=== PATIENT | female | born 1975 | race Two or more races ===

== ENCOUNTER 2017-02-21 20:31 | Inpatient (IN) | payer SELFPAY ==
[~2017-02-21] VITALS: Ht 149.9 cm; Wt 68.4 kg
[2017-02-21 21:09] LABS: Basophils # (auto) 0 uL; Basophils % (auto) 0.3 % (0.0-2.0); Eosinophils # (auto) 0.1 uL; Eosinophils % (auto) 0.5 % (0.0-7.0); Hematocrit 37.4 % (36.0-46.0); Hemoglobin 12.3 g/dL (12.2-16.2); Lymphocytes # (auto) 1.5 uL; Lymphocytes % (auto) 12.7 % (10.0-50.0); Mean Corpuscular Hgb Conc. 32.8 g/dL (32.0-36.0); Mean Corpuscular Volume 85.4 fL (80.0-100.0); Mean Platelet Volume 7.7 fL (6.9-10.8); Monocytes # (auto) 0.6 uL; Neutrophils # (auto) 9.9 uL; Neutrophils % (auto) 81.5 % (37.0-80.0); Platelet Count (auto) 316 10^3/uL (140-450); Red Cell Distribution Width 14.1 % (11.8-14.3); White Blood Cell 12.1 10^3/uL (4.4-10.8)
[2017-02-21 21:40] LABS: BUN/Creatinine Ratio 15.3; Bilirubin, Total 0.3 mg/dL (0.2-1.0); Calcium 7.6 mg/dL (8.5-10.1); Potassium 4.1 mmol/L (3.5-5.1); Total Protein 6.8 g/dL (6.4-8.2)
[2017-02-21 21:41] LABS: B-Type Natriuretic Peptide 8.5 pg/mL (0-100)
[2017-02-21 21:45] LABS: Temperature: 21.9 C (20.0-25.0)
[2017-02-22 02:42] LABS: Urine Bilirubin Negative (Negative); Urine Blood Negative /uL (Negative); Urine Color Yellow (Yellow); Urine Glucose Normal (Normal); Urine Hyaline Cast FEW /lpf (0 - 2); Urine Ketone Negative (Negative); Urine Mucus FEW (None Seen); Urine Nitrite Negative (Negative); Urine RBC 1 /hpf (0 - 4); Urine Squamous Epithelial Cell FEW /hpf (<5); Urine Urobilinogen Normal (Negative); Urine pH 5.5 (5.0-8.0)
[2017-02-22] MEDS ORDERED: ASPirin 81 mg TAB PO ONE (05:15)
[2017-02-22] MEDS ORDERED: LACTULOSE 20Gm/30ML SOLN PO PRN (06:30)
[2017-02-22] MEDS ORDERED: NITROGLYCERIN 0.4 MG SL TAB SL PRN (06:30)
[2017-02-22] MEDS ORDERED: ENALAPRIL MALEATE 2.5 MG TAB PO SCH (10:00)
[2017-02-22] MEDS ORDERED: NITROGLYCERIN 0.2MG/HR TOPICAL PATCH TD SCH (10:00)
[2017-02-22] MEDS: ENOXAPARIN SOD 30 MG/0.3 ML SYRINGE SC SCH (10:40)
[2017-02-22] MEDS: METOPROLOL TARTRATE 25 MG TAB PO SCH ×2 (10:41→22:40)
[2017-02-22] MEDS: ASPirin 81 mg TAB PO SCH (10:41)
[2017-02-22] MEDS: MORPHINE SULF INJ 2 MG/ML SYRINGE 1ML IV PRN ×2 (10:43→18:57)
[2017-02-22] MEDS: SODIUM CHLORIDE 0.9% 1,000 ML IV SCH ×3 (10:44→21:35)
[2017-02-22 11:23] VITALS: BP 114/62
[2017-02-22 16:48] VITALS: BP 95/57
[2017-02-22 20:00] VITALS: BP 113/76
[2017-02-22 21:46] VITALS: BP 113/76
[2017-02-22] MEDS: ATORVASTATIN 20 MG TAB PO SCH (22:40)
[2017-02-22] MEDS ORDERED: NITROGLYCERIN 0.4 MG SL TAB SL ONE (23:13)
[2017-02-23] MEDS ORDERED: NITROGLYCERIN 0.4 MG SL TAB SL PRN (04:45)
[2017-02-23 06:12] LABS: Basophils # (auto) 0 uL; Basophils % (auto) 0.4 % (0.0-2.0); Eosinophils # (auto) 0.3 uL; Eosinophils % (auto) 3.1 % (0.0-7.0); Hematocrit 35.5 % (36.0-46.0); Hemoglobin 11.7 g/dL (12.2-16.2); Lymphocytes # (auto) 2.8 uL; Lymphocytes % (auto) 31.2 % (10.0-50.0); Mean Corpuscular Hemoglobin 28.2 pg (28.0-32.0); Mean Corpuscular Hgb Conc. 32.9 g/dL (32.0-36.0); Mean Corpuscular Volume 85.8 fL (80.0-100.0); Mean Platelet Volume 7.7 fL (6.9-10.8); Monocytes # (auto) 0.6 uL; Monocytes % (auto) 6.3 % (0.0-12.0); Neutrophils # (auto) 5.2 uL; Nucleated Red Blood Cells % 0.1 %; Platelet Count (auto) 308 10^3/uL (140-450); Red Cell Distribution Width 14.2 % (11.8-14.3); White Blood Cell 8.9 10^3/uL (4.4-10.8)
[2017-02-23 06:34] LABS: Albumin 2.7 g/dL (3.4-5.0); BUN/Creatinine Ratio 20.8; Bilirubin, Total 0.2 mg/dL (0.2-1.0); Potassium 4.3 mmol/L (3.5-5.1); Total Protein 6.4 g/dL (6.4-8.2)
[2017-02-23 09:00] VITALS: BP 112/62
[2017-02-23] MEDS: ENOXAPARIN SOD 30 MG/0.3 ML SYRINGE SC SCH (09:57)
[2017-02-23] MEDS: METOPROLOL TARTRATE 25 MG TAB PO SCH ×2 (09:58→21:37)
[2017-02-23] MEDS: ASPirin 81 mg TAB PO SCH (09:58)
[2017-02-23] MEDS ORDERED: ACETAMINOPHEN 500 MG TAB PO PRN (12:30)
[2017-02-23 13:00] VITALS: BP 113/71
[2017-02-23 17:00] VITALS: BP 117/73
[2017-02-23] MEDS ORDERED: MORPHINE SULF INJ 2 MG/ML SYRINGE 1ML IV PRN (18:45)
[2017-02-23] MEDS: ATORVASTATIN 20 MG TAB PO SCH (21:36)
[2017-02-23 21:40] VITALS: BP 115/70
[2017-02-24 05:00] VITALS: BP 111/67
[2017-02-24 08:00] VITALS: BP 111/67
[2017-02-24 08:46] VITALS: BP 112/73
[2017-02-24] MEDS: ENOXAPARIN SOD 30 MG/0.3 ML SYRINGE SC SCH (10:44)
[2017-02-24] MEDS: METOPROLOL TARTRATE 25 MG TAB PO SCH (10:44)
[2017-02-24 13:00] VITALS: BP 108/72
[2017-02-24] MEDS ORDERED: DILTIAZEM HCL 120MG ER CAP PO SCH (13:15)
[2017-02-24 17:16] VITALS: BP 109/67
[2017-02-24 17:30] VITALS: BP 109/67
== END 2017-02-24 19:12 | disposition home or self-care (01) | DRG 280 ==
LOC: EDBD 20:39 → ER 20:39 → TELE 20:40 → TELE-E-ADS 02-22 08:47 → TELE-WESTW 02-22 10:48
PROVIDERS: ADMIT Family Medicine; ATTEND Internal Medicine
PROC: 5A2204Z Restoration of Cardiac Rhythm, Single (ICD-10-PCS; principal; 2017-02-24)
DX: I47.1 Supraventricular tachycardia (principal); I21.4 Non-ST elevation (NSTEMI) myocardial infarction; R65.11 Systemic inflammatory response syndrome (SIRS) of non-infectious origin with acute organ dysfunction; E44.0 Moderate protein-calorie malnutrition; K76.89 Other specified diseases of liver; I25.10 Atherosclerotic heart disease of native coronary artery without angina pectoris; N18.2 Chronic kidney disease, stage 2 (mild); Z79.899 Other long term (current) drug therapy; Z82.49 Family history of ischemic heart disease and other diseases of the circulatory system; Z68.30 Body mass index [BMI] 30.0-30.9, adult
CPT/HCPCS: 36415; 71010; 80053; 80061; 80307; 81001; 83735; 83880; 84443; 84484; 84702; 85025; 87086; 93005; 93017; 93306; 94761; 96361; 96372; 96374

== ENCOUNTER 2018-09-08 12:30 | Emergency (ER) | payer MEDICAID, OTHER ==
[~2018-09-08] VITALS: Ht 147.3 cm; Wt 72.6 kg
[2018-09-08 13:58] VITALS: BP 138/85
== END 2018-09-08 14:40 | disposition home or self-care (01) ==
LOC: ER 12:30
DX: L03.211 Cellulitis of face (principal); Z86.73 Personal history of transient ischemic attack (TIA), and cerebral infarction without residual deficits

== ENCOUNTER 2024-04-23 21:57 | Inpatient (IN) | payer MEDICAID, OTHER ==
[~2024-04-23] VITALS: Ht 165.1 cm; Wt 78.2 kg
[2024-04-23] MEDS: dilTIAZem 25 MG/5 ML VIAL IV ONE (22:15)
[2024-04-23] MEDS: PIPERACILLIN-TAZOB 3.375GM 100 ML IV ONE (22:15)
[2024-04-23] MEDS: SODIUM CHLORIDE 0.9% 1,000 ML IV ONE ×2 (22:15)
[2024-04-23 22:32] LABS: Basophils # (auto) 0.1 10 ^3/uL (0-0.2); Eosinophils # (auto) 0 10 ^3/uL (0-0.8); Hemoglobin 10.5 g/dL (12.2-16.2); Lymphocytes # (auto) 0.5 10 ^3/uL (0.4-5.4); Monocytes # (auto) 0.6 10 ^3/uL (0-1.3); Monocytes % (auto) 5.3 % (0.0-12.0); Neutrophils # (auto) 9.9 10 ^3/uL (1.6-8.6); White Blood Cell 11.1 10^3/uL (4.4-10.8)
[2024-04-23 22:34] LABS: Basophils % (auto) 0.6 % (0.0-2.0); Eosinophils % (auto) 0.2 % (0.0-7.0); Hematocrit 34.1 % (36.0-46.0); Lymphocytes % (auto) 4.7 % (10.0-50.0); Mean Corpuscular Hgb Conc. 30.8 g/dL (32.0-36.0); Mean Corpuscular Volume 71.4 fL (80.0-100.0); Neutrophils % (auto) 89.2 % (37.0-80.0); Platelet Count (auto) 324 10^3/uL (140-450); Red Blood Cells 4.77 10^6/uL (4.0-5.20); Red Cell Distribution Width 18.4 % (11.8-14.3)
[2024-04-23 22:45] VITALS: RESP 16; O2SAT 98
[2024-04-23 22:47] LABS: INR 1.08 (0.9-1.15); Partial Thromboplastin Time 21.6 SEC (24.5-34.5); Prothrombin Time 11.4 sec (9.3-11.8)
[2024-04-23 22:52] LABS: Alanine Aminotransferase 32 U/L (7-40); Albumin 3.7 g/dL (3.2-4.8); Anion Gap 9 (5-15); BUN/Creatinine Ratio 7.8 (10.0-20.0); Blood Urea Nitrogen 6 mg/dL (9-23); Carbon Dioxide 24 mmol/L (20-31); Chloride 103 mmol/L (98-107); Glucose 115 mg/dL (74-106); Sodium 136 mmol/L (136-145)
[2024-04-23 22:53] LABS: Alkaline Phosphatase 128 U/L (46-116); Aspartate Aminotransferase 46 U/L (13-40); Bilirubin, Total 0.2 mg/dL (0.2-1.0); Calcium 8.4 mg/dL (8.7-10.4); Magnesium 1.6 mg/dL (1.6-2.6); Total Protein 6.5 g/dL (5.7-8.2)
--- NOTE | 2024-04-23 22:53 | ED.PDOC ---
HPI Comments 49-year-old female who came to ER via EMS for chest pains. Per EMS, patient was picked up at home, noted she has been having flu-like symptoms for the past few days. Patient then altered and confused earlier today so paramedics were called. Patient was noted to be responsive only to deep sternal stimuli. UA revealed AFib at 245 beats per minute. Patient was given Zofran and aspirin and IV bolus fluids which improved heart rate to 130's. Patient slightly less confused at this time, currently complaining of chest pains and nausea. 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 Family History Family History: Pt Confused Social History Smoker: Pt Confused Alcohol: Pt Confused Drugs: Pt Confused Lives In: Home Constitutional: denies: chills, diaphoresis, fatigue, fever, malaise, sweats, weakness, others Respiratory: denies: cough, hemoptysis, orthopnea, SOB at rest, shortness of breath, SOB with excertion, stridor, wheezing, others Cardiovascular: reports: chest pain, palpitations; denies: dizzy spells, diaphoresis, Dyspnea on exertion, edema, irregular heart beat, left arm pain, lightheadedness, PND, syncope, others Gastrointestinal: denies: abdomen distended, abdominal pain, blood streaked bowels, constipated, diarrhea, dysphagia, difficulty swallowing, hematemesis, melena, nausea, poor appetite, poor fluid intake, rectal bleeding, rectal pain, vomiting, others Genitourinary: denies: abnormal vagina bleeding, burning, dyspareunia, dysuria, flank pain, frequency, hematuria, incontinence, pain, , vagina discharge, urgency, others Neurological: denies: dizziness, fainting, headache, left sided numbness, left sided weakness, numbness, paresthesia, pre-existing deficit, right sided numbness, right sided weakness, seizure, speech problems, tingling, tremors, weakness, others Musculoskeletal: denies: back pain, gout, joint pain, joint swelling, muscle pain, muscle stiffness, neck pain, others Integumetry: denies: bruises, change in color, change in hair/nails, dryness, laceration, lesions, lumps, rash, wounds, others Allergic/Immunocompromised: denies: Difficulty Healing, Frequent Infections, Hives, Itching, others Hematologic/Lymphatic: denies: anemia, blood clots, easy bleeding, easy bruising, swollen glands, others Endocrine: denies: excessive hunger, excessive sweating, excessive thirst, excessive urination, flushing, intolerance to cold, intolerance to heat, unexplained weight gain, unexplained weight loss, others Psychiatric: denies: anxiety, bipolar disorder, depression, hopeless, panic disorder, schizophrenia, sleepless, suicidal, others Physical Exam General Appearance: Obese, Severe Distress HEENT: Normal ENT Inspection, Pharynx Normal, TMs Normal Neck: Full Range of Motion, Non-Tender, Normal, Normal Inspection Respiratory: Chest Non-Tender, Lungs Clear, No Accessory Muscle Use, No Respiratory Distress, Normal Breath Sounds Cardiovascular: No Edema, No JVD, No Murmur, No Gallop, Normal Peripheral Pulses, Regular Rate/Rhythm Breast Exam: Deferred Gastrointestinal: No Organomegaly, Non Tender, No Pulsatile Mass, Normal Bowel Sounds, Soft Genitalia: Deferred Pelvic: Deferred Rectal: Deferred Extremities: No calf tenderness, Normal capillary refill, Normal inspection, Normal range of motion, Non-tender, No pedal edema Musculoskeletal : Apperance: Normal Neurologic: Alert, non destructive evaluation technician II-XII nml as Tested, No Motor Deficits, Normal Affect, Normal Mood, No Sensory Deficits Cerebellar Function: Normal Reflexes: Normal Skin: Dry, Normal Color, Warm Lymphatic: No Adenopathy EKG EKG : Pulse Rate (adult): 130 Cardiac Rhythm: ST Hypertrophy: LAE, ELAINE Was a procedure done? Was a procedure done?: No CP Differential Dx Differential Diagnosis: A-fib, Anxiety / Panic Attack, Electrolyte Disorder Differential Diagnosis: Angina, Chest Wall Pain, Costochondritis, Esophageal reflux/spasm, Gastritis, Myocardial Infarction X-Ray, Labs, Meds, VS Vital Signs Date Time Temp Pulse Resp B/P (MAP) Pulse Ox O2 Delivery O2 Flow Rate FiO2 04/23/24 23:18 105 04/23/24 22:53 130 04/23/24 22:02 100.0 135 18 122/85 (97) 97 04/23/24 21:57 130 Lab Test 04/23/24 22:50 04/23/24 22:16 Range/Units Troponin I High Sensitivity 3250 *H 1790 *H </=34 ng/L White Blood Count 11.1 H 4.4-10.8 10^3/uL Red Blood Count 4.77 4.0-5.20 10^6/uL Hemoglobin 10.5 L 12.2-16.2 g/dL Hematocrit 34.1 L 36.0-46.0 % Mean Corpuscular Volume 71.4 L 80.0-100.0 fL Mean Corpuscular Hemoglobin 22.0 L 28.0-32.0 pg Mean Corpuscular Hemoglobin Concent 30.8 L 32.0-36.0 g/dL Red Cell Distribution Width 18.4 H 11.8-14.3 % Platelet Count 324 140-450 10^3/uL Mean Platelet Volume 7.9 6.9-10.8 fL Neutrophils (%) (Auto) 89.2 H 37.0-80.0 % Lymphocytes (%) (Auto) 4.7 L 10.0-50.0 % Monocytes (%) (Auto) 5.3 0.0-12.0 % Eosinophils (%) (Auto) 0.2 0.0-7.0 % Basophils (%) (Auto) 0.6 0.0-2.0 % Neutrophils # (Auto) 9.9 H 1.6-8.6 10 ^3/uL Lymphocytes # (Auto) 0.5 0.4-5.4 10 ^3/uL Monocytes # (Auto) 0.6 0-1.3 10 ^3/uL Eosinophils # (Auto) 0 0-0.8 10 ^3/uL Basophils # (Auto) 0.1 0-0.2 10 ^3/uL Nucleated Red Blood Cells 0.0 % Prothrombin Time 11.4 9.3-11.8 sec Prothrombin Time INR 1.08 0.9-1.15 Activated Partial Thromboplast Time 21.6 L 24.5-34.5 SEC Sodium Level 136 136-145 mmol/L Potassium Level 4.0 3.5-5.1 mmol/L Chloride Level 103 98-107 mmol/L Carbon Dioxide Level 24 20-31 mmol/L Anion Gap 9 5-15 Blood Urea Nitrogen 6 L 9-23 mg/dL Creatinine 0.77 0.550-1.02 mg/dL Glomerular Filtration Rate Calc 96 >90 mL/min BUN/Creatinine Ratio 7.8 L 10.0-20.0 Serum Glucose 115 H 74-106 mg/dL Calcium Level 8.4 L 8.7-10.4 mg/dL Magnesium Level 1.6 1.6-2.6 mg/dL Total Bilirubin 0.2 0.2-1.0 mg/dL Aspartate Amino Transferase (AST) 46 H 13-40 U/L Alanine Aminotransferase (ALT) 32 7-40 U/L Alkaline Phosphatase 128 H 46-116 U/L B-Type Natriuretic Peptide 91.39 0-100 pg/mL Total Protein 6.5 5.7-8.2 g/dL Albumin 3.7 3.2-4.8 g/dL Beta HCG, Quantitative 1.4 L 1.5-4.2 mIU/mL Current Medications Medications (Trade) Dose Ordered Sig/Ingrid Route Start Time Stop Time Status Last Admin Sodium Chloride 1,000 ml @ 1,000 mls/hr Q1H ONCE IV 04/23/24 22:15 04/23/24 23:15 DC 04/23/24 22:15 Sodium Chloride 1,000 ml @ 150 mls/hr Q6H40M ONCE IV 04/23/24 22:15 04/24/24 04:54 04/23/24 22:15 Diltiazem HCl (Cardizem Injection) 20 mg ONCE ONCE IV 04/23/24 22:15 04/23/24 22:20 DC 04/23/24 22:15 Piperacillin Sod/ Tazobactam Sod 100 ml @ 100 mls/hr ONCE ONCE IV 04/23/24 22:15 04/23/24 23:15 DC 04/23/24 22:15 CHEST RADIOGRAPH Indication: CP Technique: Single frontal view of the chest was obtained Comparison: None Findings/ IMPRESSION: Low lung volumes with mild bronchovascular crowding. No active cardiopulmonary disease. First troponin is 17 90. Second troponin is 3250. EKG shows no signs of ischemia of is the patient converted from AFib to sinus tach prior to admission to the ER. She was given diltiazem 10 mg twice. BNP is 91. CBC and CMP are reasonable normal. The patient was placed on a heparin drip and Cardiology was called. The patient will be admitted to the hospitalist for further evaluation and care. Time of 1ST Reevaluation: 22:47 Reevaluation 1ST: Unchanged Patient Education/Counseling: Diagnosis, Treatment Family Education/Counseling: No Family Present Departure 1 Departure Time of Disposition: 23:55 Impression: Primary Impression: Altered level of consciousness Additional Impressions: Metabolic encephalopathy Non-STEMI (non-ST elevated myocardial infarction) Generalized weakness Flu-like symptoms Atrial fibrillation Qualified Codes: I48.91 - Unspecified atrial fibrillation Disposition: ADMITTED INPATIENT Admit to: ICU Condition: Critical e-Prescriptions No Active Prescriptions or Reported Meds Critical Care Note Critical Care Time?: Yes (35 min-critical care time only) Critical care comment: AFib Stability Stability form required: No Heart Score Heart Score: Heart Score Response (Comments) Value History Moderate Suspicious 1 EKG Repolarization Disturb 1 Age 45-64 1 Risk Factors 1 or 2 risk factors 1 Troponin >3 x's Normal limit 2 Total 6 I personally scribed for ALEXSANDER SHIRLEY MD ([email or web address]) on 04/23/24 at 22:53. Electronically submitted by Simone Conroy ([email or web address]). I personally scribed for ALEXSANDER SHIRLEY MD ([email or web address]) on 04/23/24 at 23:53. Electronically submitted by Simone Conroy ([email or web address]). ALEXSANDER SHIRLEY MD Apr 23, 2024 22:53
--- NOTE | 2024-04-23 23:01 | DVH ---
CHEST RADIOGRAPH Indication: CP Technique: Single frontal view of the chest was obtained Comparison: None Findings/ IMPRESSION: Low lung volumes with mild bronchovascular crowding. No active cardiopulmonary disease.
[2024-04-24] VITALS (9 sets, daily range): BP systolic 115–169; BP diastolic 58–91; PULSE 82–105; RESP 16–20; TEMP 98.3–99.6; O2SAT 98–100
[2024-04-24] MEDS ORDERED: NITROGLYCERIN 0.4 MG SL TAB SL PRN (00:45)
[2024-04-24] MEDS ORDERED: HYDROcodone-ACET 5/325MG TAB PO PRN (00:45)
[2024-04-24] MEDS ORDERED: ONDANSETRON HCL 4 MG/2 ML VIAL IV PRN (00:45)
[2024-04-24] MEDS: HEPARIN SODIUM (PORCINE) 5000 UNITS/ML 1ML VIAL IV ONE ×2 (00:45)
[2024-04-24] MEDS ORDERED: MORPHINE SULFATE INJ 2 MG/ml SYRG IV PRN ×2 (00:45)
[2024-04-24] MEDS ORDERED: DOCUSATE SOD 100 MG CAP PO PRN (00:45)
[2024-04-24] MEDS: HEPARIN SODIUM (PORCINE) 5000 UNITS/ML 1ML VIAL SC ONE (00:47)
--- NOTE | 2024-04-24 00:52 | DVHHP2 ---
History of Present Illness Reason for Visit: Non-STEMI (non-ST elevated myocardial infarction) History of Present Illness The patient is a 49-year-old female with past medical history of AFib and CVA w ho presented to [facility] ED with complaint of chest pain. As reported by EMS, patient was picked up at home, noted to flu-like symptoms for the past few days, altered, confused today so EMS were called. When EMS arrived on the scene, patient was responsive only to deep sternal stimuli, AFib at 245 beats per minute. Patient was given IV fluid bolus and aspirin which improved heart rate to 130s EN route to our facility ED. patient was seen and evaluated in the ED, laboratory data shows WBC 11.1, platelets 324, sodium 136, potassium 4.0, BUN 6, creatinine 0.77, glucose 115, AST 46, ALT 32, BNP 91.39, troponin 3250, blood pressure 122/85, heart rate 135 trending down to 105, temperature 100.0 F, O2 saturation 97% on oxygen. Head CT showed no acute intracranial abnormality. Patient was started on heparin drip, please see medication orders section in the computer. On my assessment, patient denied chest pain at this moment, no headache, no dizziness, no diaphoresis, abdominal pain, no diarrhea, no nausea, no vomiting, no fever, no chills. Patient was admitted for further evaluation and medical management. Past Medical History AFIB, CVA Past Surgical History Denies all surgeries Family History Reviewed, noncontributory to the management of this case. Past Social History The patient lives at home, denies smoking, alcohol or illicit drugs abuse. Review of Systems Constitutional: Yes: Weakness; No: Fever, Chills, Sweats, Malaise, Other Eyes: No: Pain, Vision change, Conjunctivae inflammation, Eyelid inflammation, Other, Redness ENT: No: Ear pain, Ear discharge, Nose pain, Nose discharge, Nose congestion, Mouth pain, Mouth swelling, Throat pain, Throat swelling, Other Respiratory: No: Cough, Dry, Shortness of breath, SOB with excertion, Wheezing, Hemoptysis, Pleuritic Pain, Sputum, Wheezing, Other Cardiovascular: Chest Pain, Palpitations; No: Orthopnea, Paroxysmal Noc. Dyspnea, Edema, Lt Headedness, Other Gastrointestinal: No: Nausea, Vomiting, Abdominal Pain, Diarrhea, Constipation, Melena, Hematochezia, Other Genitourinary: No Dysuria, No Frequency, No Incontinence, No Hematuria, No Retention, No Other Musculoskeletal: No: other, neck pain, shoulder pain, arm pain, back pain, hand pain, leg pain, foot pain Skin: No: Rash, Lesions, Jaundice, Bruising, Other Neurological: No: Weakness, Numbness, Incoordination, Change in speech, Confusion, Seizures, Other Allergies: Coded Allergies: NO KNOWN ALLERGIES (Unverified , 02/21/17) Medications Current Medications Medications Dose Ordered Sig/Ingrid Route Start Time Stop Time Status Last Admin Dose Admin Heparin Sodium/ Dextrose 250 ml @ 10 mls/hr Q24H IV 04/24/24 00:00 Exam Vital Signs Vital Signs Date Time Temp Pulse Resp B/P (MAP) Pulse Ox O2 Delivery O2 Flow Rate FiO2 04/23/24 23:18 105 04/23/24 22:02 100.0 18 122/85 (97) 97 General Appearance: Alert, Oriented X3, Cooperative, No acute distress HEENT: Atraumatic, PERRLA, EOMI, Mucous membr. moist/pink Respiratory: Clear to auscultation, Normal air movement Cardiovascular: Regular rate, Normal S1, Normal S2, No murmurs Abdominal: Normal bowel sounds, Soft, No tenderness, No hepatospenomegaly, No masses Extremities: No clubbing, No cyanosis, No edema, Normal pulses, No tenderness/swelling Skin: No rashes, No breakdown, No significant lesion Neuro: Normal speech, Normal tone, Sensation intact, Cranial nerves 3-12 NL, Reflexes 2+ Psych/Mental Status: Mental status NL, Mood NL Labs/Xrays Labs Test 04/23/24 22:50 04/23/24 22:16 Range/Units Troponin I High Sensitivity 3250 *H </=34 ng/L White Blood Count 11.1 H 4.4-10.8 10^3/uL Red Blood Count 4.77 4.0-5.20 10^6/uL Hemoglobin 10.5 L 12.2-16.2 g/dL Hematocrit 34.1 L 36.0-46.0 % Mean Corpuscular Volume 71.4 L 80.0-100.0 fL Mean Corpuscular Hemoglobin 22.0 L 28.0-32.0 pg Mean Corpuscular Hemoglobin Concent 30.8 L 32.0-36.0 g/dL Red Cell Distribution Width 18.4 H 11.8-14.3 % Platelet Count 324 140-450 10^3/uL Mean Platelet Volume 7.9 6.9-10.8 fL Neutrophils (%) (Auto) 89.2 H 37.0-80.0 % Lymphocytes (%) (Auto) 4.7 L 10.0-50.0 % Monocytes (%) (Auto) 5.3 0.0-12.0 % Eosinophils (%) (Auto) 0.2 0.0-7.0 % Basophils (%) (Auto) 0.6 0.0-2.0 % Neutrophils # (Auto) 9.9 H 1.6-8.6 10 ^3/uL Lymphocytes # (Auto) 0.5 0.4-5.4 10 ^3/uL Monocytes # (Auto) 0.6 0-1.3 10 ^3/uL Eosinophils # (Auto) 0 0-0.8 10 ^3/uL Basophils # (Auto) 0.1 0-0.2 10 ^3/uL Nucleated Red Blood Cells 0.0 % Prothrombin Time 11.4 9.3-11.8 sec Prothrombin Time INR 1.08 0.9-1.15 Activated Partial Thromboplast Time 21.6 L 24.5-34.5 SEC Sodium Level 136 136-145 mmol/L Potassium Level 4.0 3.5-5.1 mmol/L Chloride Level 103 98-107 mmol/L Carbon Dioxide Level 24 20-31 mmol/L Anion Gap 9 5-15 Blood Urea Nitrogen 6 L 9-23 mg/dL Creatinine 0.77 0.550-1.02 mg/dL Glomerular Filtration Rate Calc 96 >90 mL/min BUN/Creatinine Ratio 7.8 L 10.0-20.0 Serum Glucose 115 H 74-106 mg/dL Calcium Level 8.4 L 8.7-10.4 mg/dL Magnesium Level 1.6 1.6-2.6 mg/dL Total Bilirubin 0.2 0.2-1.0 mg/dL Aspartate Amino Transferase (AST) 46 H 13-40 U/L Alanine Aminotransferase (ALT) 32 7-40 U/L Alkaline Phosphatase 128 H 46-116 U/L B-Type Natriuretic Peptide 91.39 0-100 pg/mL Total Protein 6.5 5.7-8.2 g/dL Albumin 3.7 3.2-4.8 g/dL Beta HCG, Quantitative 1.4 L 1.5-4.2 mIU/mL PATIENT: PARVIZ PERDOMO ACCT: [id number] UNIT: [id number] : 1975 LOC: ER ROOM / BED: / AGE / SEX: 49 / F ADM STATUS: REG ER SERVICE 07 ORDERING PHYSICIAN: ALEXSANDER SHIRLEY MD PROCEDURE(s): HWOCT - HEAD WITHOUT CONTRAST REASON: aloc ORDER NUMBER(s): [id number], ACCESSION NUMBER(s): [id number] CT HEAD WITHOUT CONTRAST INDICATION: aloc EXAM DATE: 04/24/2024 12:22 AM COMPARISON: None RADIATION DOSE: CTDIvol: 59 mGy, DLP: 1044 mGy*cm PROCEDURE: CT scans of the head were obtained from the vertex to the skull base. Sagittal and coronal reconstructions were provided. All CT scans at this medical facility are performed using dose modulation techniques as appropriate to a performed exam including the following: Automated exposure control was utilized; adjustment of the MA and/or KV according to patient size; and use of iterative reconstruction technique. FINDINGS: There is sulcal and ventricular prominence. The brainshows normal morphology and vazquez-white matter differentiation, without intracranial hemorrhage, extra-axial fluid collection, mass effect or acute large vessel infarct. The ventricles are normal in size. The basal cisterns are patent. The skull and visible facial bones are intact. The paranasal sinuses, mastoid air cells and middle ear cavities are well-aerated. The soft tissues of the scalp are unremarkable. IMPRESSION: No acute intracranial abnormality. ORDERING PHYSICIAN: ALEXSANDER SHIRLEY MD PROCEDURE(s): CXRP - CHEST PORTABLE REASON: CP ORDER NUMBER(s): [id number], ACCESSION NUMBER(s): [id number] CHEST RADIOGRAPH Indication: CP Technique: Single frontal view of the chest was obtained Comparison: None Findings/ IMPRESSION: Low lung volumes with mild bronchovascular crowding. No active cardiopulmonary disease. Assessment/Plan Assessment/Plan Altered level of consciousness Metabolic encephalopathy Non-STEMI (non-ST elevated myocardial infarction) Generalized weakness Atrial fibrillation Unspecified atrial fibrillation Plan 1. Admit to telemetry unit 2. Breathing treatment 3. Pain control management 4. IV antibiotic management 5. Management of fluids and electrolytes 6. Consultation for cardiology 7. Diagnostic test head CT 8. DVT prophylaxis-on heparin drip 9. Repeat labs CBC, CMP in a.m. 10. Home medication reviewed and reconciled 11. Continue with current medical management 12. Treatment plan discussed with patient and RN. Patient verbalized understanding. Plan discussed with: Patient, Other (RN) Problem List: (1) Unspecified atrial fibrillation (2) Altered level of consciousness (3) Generalized weakness (4) Atrial fibrillation (5) Metabolic encephalopathy (6) Non-STEMI (non-ST elevated myocardial infarction) Date of Service: Apr 24, 2024 Billing Provider: RICHY MARTÍNEZ DNP Common Visit Codes: [id number] INP/OBS CARE (HIGH) RICHY MARTÍNEZ DNP Apr 24, 2024 00:52
--- NOTE | 2024-04-24 01:01 | DVH ---
CT HEAD WITHOUT CONTRAST INDICATION: aloc EXAM DATE: 04/24/2024 12:22 AM COMPARISON: None RADIATION DOSE: CTDIvol: 59 mGy, DLP: 1044 mGy*cm PROCEDURE: CT scans of the head were obtained from the vertex to the skull base. Sagittal and coronal reconstructions were provided. All CT scans at this medical facility are performed using dose modulation techniques as appropriate t o a performed exam including the following: Automated exposure control was utilized; adjustment of th e MA and/or KV according to patient size; and use of iterative reconstruction technique. FINDINGS: There is sulcal and ventricular prominence. The brainshows normal morphology and vazquez-whi te matter differentiation, without intracranial hemorrhage, extra-axial fluid collection, mass effect or acute large vessel infarct. The ventricles are normal in size. The basal cisterns are patent. The skull and visible facial bones are intact. The paranasal sinuses, mastoid air cells and middle ear c avities are well-aerated. The soft tissues of the scalp are unremarkable. IMPRESSION: No acute intracranial abnormality.
[2024-04-24 02:36] LABS: Urine Bacteria FEW /hpf (None Seen); Urine Blood Negative /uL (Negative); Urine Clarity Turbid (Clear); Urine Color Colorless (Yellow); Urine Mucus FEW (None Seen); Urine Protein, UAD TRACE (Negative); Urine Specific Gravity 1.009 (1.001-1.035); Urine Urobilinogen Normal (Negative); Urine WBC 3 /hpf (0 - 5)
[2024-04-24 02:47] LABS: Amphetamine Screen, Urine Pos (NEGATIVE); Barbiturate Scree,Urine Neg (NEGATIVE); Benzodiazephine Screen, Urine Neg (NEGATIVE); Cannabinoid Screen, Urine Neg (NEGATIVE); Cocaine Screen, Urine Neg (NEGATIVE); Opiate Scree,Urine Neg (NEGATIVE); Phencyclidine Screen, Urine Neg (NEGATIVE)
[2024-04-24 03:34] LABS: COVID19 ANTIGEN SOFIA FIA NEGATIVE (NEGATIVE)
[2024-04-24 03:35] LABS: Rapid Influenza A Positive (Negative); Rapid Influenza B Negative (Negative)
[2024-04-24] MEDS: SODIUM CHLORIDE 0.9% 1,000 ML IV SCH (04:50)
--- NOTE | 2024-04-24 06:32 | ECG ---
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
--- NOTE | 2024-04-24 06:37 | ECG ---
[facility] Test Date: 2024-04-23 Test Time: 21:54:03 Pat Name: PARVIZ PERDOMO Department: ED Room: [address] [place] [address] Gender: F Rn Neonatal Icu: : 1975 Requested By: ALEXSANDER SHIRLEY Order Number: [id number] Reading MD: Measurements Intervals [place] Rate: 130 P: 75 MT: 81 QRS: 56 QRSD: 96 T: -9 QT: 314 QTc: 462 Interpretive Statements Sinus tachycardia LAE, consider biatrial enlargement Borderline repolarization abnormality Please click the below link to view image of tracing.
[2024-04-24 06:38] LABS: INR 1.11 (0.9-1.15); Partial Thromboplastin Time 53.2 SEC (24.5-34.5); Prothrombin Time 11.7 sec (9.3-11.8)
--- NOTE | 2024-04-24 06:38 | ECG ---
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
[2024-04-24 08:35] LABS: INR 1.11 (0.9-1.15); Prothrombin Time 11.7 sec (9.3-11.8)
[2024-04-24] MEDS: cefTRIAXone 1GM/50ML D5W 50 ML IV SCH (09:48)
--- NOTE | 2024-04-24 11:43 | DVHPN2 ---
Assessment/Plan Assessment/Plan Progress note Subjective 49 F admitted for chest pain, found significant trop elevation, in sinus rhythm and postive flu A. Objective Physical exam alert oriented x3 laying flat, breathing comfortably on room air s1 s2 RRR no murmur abdomen soft nontender no LE edema Lab wbc 11 hb 10 mcv 71 trop 1790 - 8226 ca 84 bnp 91 EKG LVH, sinus tach Imaging CXR clear CTH clear POCUS chest: trace effusion, good contractility, grossly normal valves, IVC normal Assessment and plan treat as ACS, NSTEMI possible myocarditis acute metabolic encephalopathy Flu A URI pafib amphetamine use start asa load, heparin drip resume home meds tamiflu echo colchicine cardio consult Replete electrolytes Diet HH DVT prophylaxis on heparin drip Plan discussed with: Patient My Orders Orders - APARNA SHOEMAKER MD Procedure Category Date Status Time Echo 2d Mode Cardiac US 04/24/24 Logged DOP 10:52 Oseltamivir 75mg PHA 04/24/24 In Process Capsule (Tamiflu 75mg 22:00 Aspirin Enteric PHA 04/25/24 In Process Coated Tablet 10:00 Erythrocyte LAB 04/24/24 Logged Sedimentation Rate 11:34 Lactic Acid W/ Reflex LAB 04/24/24 Logged Order 11:39 Colchicine (Colcrys) PHA 04/24/24 Transmitted 11:45 Date of Service: Apr 24, 2024 Billing Provider: APARNA SHOEMAKER MD Common Visit Codes: [id number] INP/OBS CARE(HIGH), PROCEDURE ONLY (Cardiac point of care ultrasound [id number]) APARNA SHOEMAKER MD Apr 24, 2024 11:43
[2024-04-24] MEDS: ASPirin-EC 325mg tab PO ONE (12:19)
[2024-04-24] MEDS: COLCHICINE 0.6 MG CAP PO SCH (12:19)
[2024-04-24] MEDS: NITROGLYCERIN 0.4 MG SL TAB SL ONE (12:20)
[2024-04-24 12:23] LABS: Erythrocyte Sedimentation Rate 23 mm/hr (0-20)
[2024-04-24 12:27] LABS: INR 1.12 (0.9-1.15); Partial Thromboplastin Time 44.6 SEC (24.5-34.5); Prothrombin Time 11.8 sec (9.3-11.8)
--- NOTE | 2024-04-24 12:55 | DVHINCON2 ---
NATALIA CID AGACNP 04/24/24 1255: Date Seen: Apr 24, 2024 Referring Physician Jaydon Reason for Consultation NSTEMI History of Present Illness 49-year-old female with PMH for atrial fibrillation, CVA, amphetamine abuse, noncompliance presents to the hospital with chest pain. Chest pain noted to be retrosternal, nonradiating, intermittent, pressure in nature associated with bilateral arm numbness and shortness of breath. Patient states that she has been dealing with some flu-like symptoms for the last 2 days prior to prese ntation. Upon evaluation patient noted to be in atrial fibrillation with RVR for which patient was treated with IV fluids and heart rate improved. Patient's troponins noted to be elevated and trending 1790, 3250, 8226. UDS positive for amphetamines. Patient also found to be influenza A positive. EKG reviewed and shows sinus tachycardia at 106 beats per minute, inferolateral ST and T-wave abnormality. Past Medical History As above Past Surgical History As noted above Family History: Diabetes mellitus G8 MOTHER Family History Denies pertinent family cardiac history Social History Endorses occasional tobacco use, amphetamine use, and alcohol use. Allergies: Coded Allergies: NO KNOWN ALLERGIES (Unverified , 02/21/17) Home Meds No Active Prescriptions or Reported Meds Current Medications Current Medications Medications (Trade) Dose Ordered Sig/Ingrid Route PRN Reason Start Time Stop Time Status Last Admin Heparin Sodium/ Dextrose 250 ml @ 10 mls/hr Q24H IV 04/24/24 00:00 04/24/24 00:00 Atorvastatin Calcium (Lipitor) 20 mg HS PO 04/24/24 22:00 Sodium Chloride 1,000 ml @ 60 mls/hr [id number] IV 04/24/24 00:45 04/24/24 04:50 Acetaminophen/ Hydrocodone Bitart ([place] 5/325MG Tab) 1 tab Q4HP PRN PO MODERATE PAIN (4-6 PAIN SCALE) 04/24/24 00:45 04/24/24 10:55 DC Ondansetron HCl (Zofran) 4 mg Q4HP PRN IV NAUSEA / VOMITING 04/24/24 00:45 04/24/24 10:55 DC Docusate Sodium (Colace Capsule) 100 mg BIDPRN PRN PO FOR CONSTIPATION 04/24/24 00:45 04/24/24 10:55 DC Acetaminophen (Tylenol Tablet) 650 mg Q6HP PRN PO PAIN SCALE 1-3 OR TEMP>100.4 04/24/24 00:45 Morphine Sulfate 2 mg Q4HPRN PRN IV SEVERE PAIN (7-10 PAIN SCALE) 04/24/24 00:45 04/24/24 10:55 DC Nitroglycerin (Ntrostat Sublingual) 0.4 mg Q5MINP PRN SL FOR CHEST PAIN 04/24/24 00:45 Morphine Sulfate 2 mg Q30M PRN IV FOR CHEST PAIN 04/24/24 00:45 04/24/24 10:55 DC Ceftriaxone Sodium 50 ml @ 100 mls/hr DAILY@09 IV 04/24/24 09:00 04/24/24 09:48 Oseltamivir Phosphate (Tamiflu 75MG Capsule) 75 mg Q12HR PO 04/24/24 22:00 04/29/24 21:59 Aspirin (Ecotrin Enteric Coated Tablet) 81 mg DAILY PO 04/25/24 10:00 Colchicine (Colcrys) 0.6 mg DAILY PO 04/24/24 11:45 04/24/24 12:19 Albuterol (Ventolin Medneb) 2.5 mg Q6HPRN PRN NEB SHORTNESS OF BREATH 04/24/24 12:15 UNV Metoprolol Succinate (Toprol Xl) 25 mg DAILY PO 04/25/24 10:00 UNV Review of Systems Constitutional: No: Fever, Chills, Sweats, Weakness, Malaise, Other Eyes: No: Pain, Vision change, Conjunctivae inflammation, Eyelid inflammation, Other, Redness ENT: No: Ear pain, Ear discharge, Nose pain, Nose discharge, Nose congestion, Mouth pain, Mouth swelling, Throat pain, Throat swelling, Other Respiratory: No: , Wheezing, Hemoptysis, Pleuritic Pain, Sputum, Wheezing, Other positive: Cough, Dry, Shortness of breath, SOB with exertion Cardiovascular: ; No: Palpitations, Orthopnea, Paroxysmal Noc. Dyspnea, Edema, Lt Headedness, Other positive: Chest Pain Gastrointestinal: No: Nausea, Vomiting, Abdominal Pain, Diarrhea, Constipation, Melena, Hematochezia, Other Genitourinary: No Dysuria, No Frequency, No Incontinence, No Hematuria, No Retention, No Other Musculoskeletal: neck pain; No: other, shoulder pain, arm pain, back pain, hand pain, leg pain, foot pain Skin: No: Rash, Lesions, Jaundice, Bruising, Other Neurological: Other (Dizziness, headache.); No: Weakness, Numbness, Incoordination, Change in speech, Confusion, Seizures Vital Signs Vital Signs Date Time Temp Pulse Resp B/P (MAP) Pulse Ox O2 Delivery O2 Flow Rate FiO2 04/24/24 12:20 168/91 04/24/24 12:00 94 04/24/24 10:00 21 99 04/24/24 08:00 99.0 99.0 04/24/24 08:00 Nasal Cannula* 2 28 Physical Exam General appearance: Patient is well-developed, well-nourished, in no acute distress. HEENT: Exam shows: Normocephalic, atraumatic, PERRLA, EOMI Neck: Supple, no bruits Chest: Equal chest excursion bilaterally. Breath sounds normal-no rales or wheezes. Heart: Rhythm: Regular rate; no murmur or gallop Abdomen: Exam shows: Soft, nontender, nondistended Musculoskeletal: No clubbing, no cyanosis, no lower extremity edema Dermatology: Skin warm, moist. Neurological: Exam shows: Alert and oriented x4, normal speech Available prior records, labs, EKG, rhythm strips reviewed and interpreted Labs/Diagnostic Data Labs Test 04/24/24 11:55 04/24/24 05:40 04/24/24 02:35 04/24/24 02:00 Range/Units Prothrombin Time 11.8 9.3-11.8 sec Prothrombin Time INR 1.12 0.9-1.15 Activated Partial Thromboplast Time 44.6 H 24.5-34.5 SEC Lactic Acid Level 1.1 0.4-2.0 mmol/L Erythrocyte Sedimentation Rate 23 H 0-20 mm/hr Influenza Type A Antigen Positive Negative Influenza Type B Antigen Negative Negative SARS-CoV-2 Antigen (Rapid) Negative NEGATIVE Urine Color Colorless Yellow Urine Clarity Turbid H Clear Urine pH 6.0 5.0-9.0 Urine Specific [place] 1.009 1.001-1.035 Urine Protein Trace H Negative Urine Ketones Negative Negative Urine Blood Negative Negative /uL Urine Nitrite Negative Negative Urine Bilirubin Negative Negative Urine Urobilinogen Normal Negative mg/dL Urine Leukocyte Esterase Negative Negative /uL Urine RBC 1 0 - 4 /hpf Urine WBC 3 0 - 5 /hpf Urine Squamous Epithelial Cells Few <5 /hpf Urine Bacteria Few H None Seen /hpf Urine Mucus Few None Seen Urine Glucose Normal Normal mg/dL Urine Opiates Screen Neg NEGATIVE Urine Fentanyl Screen Neg NEGATIVE Urine Barbiturates Screen Neg NEGATIVE Urine Phencyclidine Screen Neg NEGATIVE Urine Amphetamines Screen Pos NEGATIVE Urine Benzodiazepines Screen Neg NEGATIVE Urine Cocaine Screen Neg NEGATIVE Urine Cannabinoids Screen Neg NEGATIVE Test 04/24/24 00:57 04/23/24 22:16 Range/Units Troponin I High Sensitivity 8226 *H </=34 ng/L White Blood Count 11.1 H 4.4-10.8 10^3/uL Red Blood Count 4.77 4.0-5.20 10^6/uL Hemoglobin 10.5 L 12.2-16.2 g/dL Hematocrit 34.1 L 36.0-46.0 % Mean Corpuscular Volume 71.4 L 80.0-100.0 fL Mean Corpuscular Hemoglobin 22.0 L 28.0-32.0 pg Mean Corpuscular Hemoglobin Concent 30.8 L 32.0-36.0 g/dL Red Cell Distribution Width 18.4 H 11.8-14.3 % Platelet Count 324 140-450 10^3/uL Mean Platelet Volume 7.9 6.9-10.8 fL Neutrophils (%) (Auto) 89.2 H 37.0-80.0 % Lymphocytes (%) (Auto) 4.7 L 10.0-50.0 % Monocytes (%) (Auto) 5.3 0.0-12.0 % Eosinophils (%) (Auto) 0.2 0.0-7.0 % Basophils (%) (Auto) 0.6 0.0-2.0 % Neutrophils # (Auto) 9.9 H 1.6-8.6 10 ^3/uL Lymphocytes # (Auto) 0.5 0.4-5.4 10 ^3/uL Monocytes # (Auto) 0.6 0-1.3 10 ^3/uL Eosinophils # (Auto) 0 0-0.8 10 ^3/uL Basophils # (Auto) 0.1 0-0.2 10 ^3/uL Nucleated Red Blood Cells 0.0 % Sodium Level 136 136-145 mmol/L Potassium Level 4.0 3.5-5.1 mmol/L Chloride Level 103 98-107 mmol/L Carbon Dioxide Level 24 20-31 mmol/L Anion Gap 9 5-15 Blood Urea Nitrogen 6 L 9-23 mg/dL Creatinine 0.77 0.550-1.02 mg/dL Glomerular Filtration Rate Calc 96 >90 mL/min BUN/Creatinine Ratio 7.8 L 10.0-20.0 Serum Glucose 115 H 74-106 mg/dL Calcium Level 8.4 L 8.7-10.4 mg/dL Magnesium Level 1.6 1.6-2.6 mg/dL Total Bilirubin 0.2 0.2-1.0 mg/dL Aspartate Amino Transferase (AST) 46 H 13-40 U/L Alanine Aminotransferase (ALT) 32 7-40 U/L Alkaline Phosphatase 128 H 46-116 U/L B-Type Natriuretic Peptide 91.39 0-100 pg/mL Total Protein 6.5 5.7-8.2 g/dL Albumin 3.7 3.2-4.8 g/dL Beta HCG, Quantitative 1.4 L 1.5-4.2 mIU/mL Assessment NSTEMI likely type 2 Influenza A positive Suspected myocarditis Paroxysmal atrial fibrillation with episode of RVR Amphetamine abuse Medication noncompliance Plan/Recommendation * Continue heparin drip. Follow-up echo. Continue aspirin and statin. Possible ischemic workup pending echo results * On Tamiflu * Metoprolol 25 mg p.o. twice daily. On heparin drip for stroke prophylaxis, recommend Eliquis 5 mg p.o. twice daily upon discharge. * Colchicine 0.6 mg p.o. daily. * Strongly advised against continued amphetamine use. Case Discussed with Dr Gomez. Continue heparin drip for NSTEMI. Metoprolol changed at 25 mg p.o. twice daily. Follow-up echo. Continued on colchicine 0.6 mg p.o. daily. Pending echo results possible ischemic. Continue telemetry monitoring. Critical care, time spent: 48 minutes This medical document was created using an electronic medical record system with voice recognition software and computerized dictation system. Although this document has been carefully reviewed, there might still be some phonetic and t ypographical errors. Occasional wrong-word or ``sound-alike substitutions may have occurred due to the inherent limitations of voice recognition software. These areas are purely typographical due to imperfections of the software programs and do not reflect any compromise in the patient's medical care. Please read the chart carefully and recognize, using context, where these brink bstitutions have occurred. Plan discussed with: Patient Date of Service: Apr 24, 2024 Billing Provider: NATALIA CID Cardiology Common Codes: [id number] INP/OBS CARE (High), [id number] CARE 30-74 MIN BARBARA GOMEZ MD 04/24/24 1413: Family History: Diabetes mellitus G8 MOTHER Allergies: Coded Allergies: NO KNOWN ALLERGIES (Unverified , 02/21/17) Home Meds No Active Prescriptions or Reported Meds Plan/Recommendation +meth addict +flu A and suspicion for myocardiits heparin normal lvef on echo pain control NATALIA CID Apr 24, 2024 12:55 BARBARA GOMEZ MD Apr 24, 2024 14:13
[2024-04-24] MEDS: METOPROLOL SUCCINATE XL 50 MG TAB PO ONE (13:08)
--- NOTE | 2024-04-24 13:20 | DVHSR ---
APPROVED REPORT EXAM: Two-dimensional and M-mode echocardiogram with Doppler and color Doppler. Blood Pressure: 122/77 mmHg INDICATION ACS RISK FACTORS Height: 5'5", Weight: 240 DIMENSIONS LVDd4.7 (3.8-5.7cm)LA (2D)3.8 (1.9-4.0cm)Aortic Root2.9 (2.0-3.7cm) LVDs3.7 (2.5-4.0cm)LA (MM) (1.9-4.0cm)Aortic Cusp Exc1.5 (1.5-2.0cm) EF (%) 53.0 (55-70%)Rt. Atrium3.1 (1.9-4.0cm)Asc. Aorta cm IVSd1.3 (0.7-1.1cm)RV (D)2.9 (1.8-2.4cm) PWd1.1 (0.7-1.1cm) Mitral Valve MitralMitral Stenosis E wave1.04m/sMV Mean GR.mmHg A wave0.79m/sMV Peak GR.mmHg E/A ratio1.32D MVAcm2 DECEL [id number] 1/2 Timems Aortic Valve Aortic ValveAortic Stenosis V11.02m/Sosa Mean GR.10mmHg V22.24m/Sosa Peak GR.20mmHg LVOT Diameter1.8 (1.8-2.4cm)Doppler AVA1.16cm2 AI P 1/2 Ivey704.19ms Pulmonic Valve V21.28m/s Tricuspid Valve TR Velocity2.33m/s [id number] Other Information Technically limited study due to body habitus. Conclusion lvef 65% borderline lvh mild mitral regurg
[2024-04-24] MEDS: HEPARIN DRIP/D5W 100UNITS/ML 250 ML IV SCH ×2 (14:06)
[2024-04-24] MEDS: ALBUTEROL SULF 2.5 MG/0.5ML(0.5%) NEB SOLN NEB PRN (18:14)
[2024-04-24 19:41] LABS: INR 1.12 (0.9-1.15); Partial Thromboplastin Time 67.2 SEC (24.5-34.5); Prothrombin Time 11.8 sec (9.3-11.8)
[2024-04-24] MEDS: OSELTAMIVIR 75 MG CAP PO SCH (22:03)
[2024-04-24] MEDS: ATORVASTATIN 20 MG TAB PO SCH (22:03)
[2024-04-25] VITALS (14 sets, daily range): BP systolic 107–147; BP diastolic 50–86; PULSE 58–90; RESP 16–19; TEMP 97.8–99.9; O2SAT 89–99
[2024-04-25 01:53] LABS: INR 1.11 (0.9-1.15); Prothrombin Time 11.7 sec (9.3-11.8)
[2024-04-25 02:14] LABS: Partial Thromboplastin Time 83.4 SEC (24.5-34.5)
[2024-04-25] MEDS: HEPARIN DRIP/D5W 100UNITS/ML 250 ML IV SCH ×2 (02:24→12:59)
[2024-04-25] MEDS: ACETAMINOPHEN 325 MG TAB PO PRN (04:17)
[2024-04-25 06:08] LABS: Basophils # (auto) 0 10 ^3/uL (0-0.2); Eosinophils # (auto) 0 10 ^3/uL (0-0.8); Eosinophils % (auto) 0.4 % (0.0-7.0); Hemoglobin 9.9 g/dL (12.2-16.2); Mean Corpuscular Volume 71.5 fL (80.0-100.0); Monocytes # (auto) 0.7 10 ^3/uL (0-1.3)
[2024-04-25 06:12] LABS: Basophils % (auto) 0.5 % (0.0-2.0); Hematocrit 30.8 % (36.0-46.0); Lymphocytes # (auto) 1.2 10 ^3/uL (0.4-5.4); Lymphocytes % (auto) 17.5 % (10.0-50.0); Mean Corpuscular Hemoglobin 22.9 pg (28.0-32.0); Monocytes % (auto) 10.1 % (0.0-12.0); Neutrophils % (auto) 71.5 % (37.0-80.0); Platelet Count (auto) 279 10^3/uL (140-450); Red Blood Cells 4.31 10^6/uL (4.0-5.20); Red Cell Distribution Width 18.5 % (11.8-14.3)
[2024-04-25 06:31] LABS: Alanine Aminotransferase 31 U/L (7-40); Alkaline Phosphatase 107 U/L (46-116); Anion Gap 6 (5-15); BUN/Creatinine Ratio 16.1 (10.0-20.0); Carbon Dioxide 27 mmol/L (20-31); Chloride 106 mmol/L (98-107); Glucose 98 mg/dL (74-106); Potassium 3.6 mmol/L (3.5-5.1); Sodium 139 mmol/L (136-145)
[2024-04-25 06:32] LABS: Albumin 3.4 g/dL (3.2-4.8); Magnesium 1.8 mg/dL (1.6-2.6)
[2024-04-25 06:33] LABS: Total Protein 6.3 g/dL (5.7-8.2)
[2024-04-25 06:46] LABS: Aspartate Aminotransferase 55 U/L (13-40); Bilirubin, Total 0.2 mg/dL (0.2-1.0); Blood Urea Nitrogen 9 mg/dL (9-23); Calcium 8.6 mg/dL (8.7-10.4)
[2024-04-25 07:40] LABS: INR 1.1 (0.9-1.15); Partial Thromboplastin Time 60.2 SEC (24.5-34.5); Prothrombin Time 11.6 sec (9.3-11.8)
[2024-04-25] MEDS: METOPROLOL SUCCINATE XL 50 MG TAB PO SCH (08:55)
[2024-04-25] MEDS: ASPirin-EC 81 mg tab PO SCH (08:56)
[2024-04-25 11:49] LABS: INR 1.08 (0.9-1.15); Partial Thromboplastin Time 68.3 SEC (24.5-34.5); Prothrombin Time 11.4 sec (9.3-11.8)
--- NOTE | 2024-04-25 13:02 | DVHPN2 ---
Consult Progress Note Subjective Patient reports: No new complaints Review of Systems: CVS:Normal (Denies chest pain, palpitation, shortness of breath), RESPIRATORY:Abnormal (Cough) Objective vital signs Vital Sign Date Time Temp Pulse Resp B/P (MAP) Pulse Ox O2 Delivery O2 Flow Rate FiO2 04/25/24 09:00 97.8 89 137/86 (103) 89 97.8 04/25/24 08:52 18 04/25/24 08:46 Nasal Cannula 2.0 04/25/24 08:46 28 Total Intake and Output 04/24/24 04/24/24 04/25/24 15:00 23:00 07:00 Intake Total 540 ml 0 ml 786.6 ml Output Total 0 ml Balance 540 ml 0 ml 786.6 ml medications Current Medications Medications Dose Ordered Sig/Ingrid Route Start Time Stop Time Status Last Admin Dose Admin Atorvastatin Calcium 20 mg HS PO 04/24/24 22:00 04/24/24 22:03 20 MG Sodium Chloride 1,000 ml @ 60 mls/hr [id number] IV 04/24/24 00:45 04/25/24 00:29 60 MLS/HR Acetaminophen 650 mg Q6HP PRN PO 04/24/24 00:45 04/25/24 04:17 650 MG Nitroglycerin 0.4 mg Q5MINP PRN SL 04/24/24 00:45 Ceftriaxone Sodium 50 ml @ 100 mls/hr DAILY@09 IV 04/24/24 09:00 04/25/24 08:55 100 MLS/HR Oseltamivir Phosphate 75 mg Q12HR PO 04/24/24 22:00 04/29/24 21:59 04/25/24 08:55 75 MG Aspirin 81 mg DAILY PO 04/25/24 10:00 04/25/24 08:56 81 MG Colchicine 0.6 mg DAILY PO 04/24/24 11:45 04/25/24 08:55 0.6 MG Albuterol 2.5 mg Q6HPRN PRN NEB 04/24/24 12:15 04/25/24 08:46 2.5 MG Metoprolol Succinate 25 mg DAILY PO 04/25/24 10:00 04/25/24 08:55 25 MG Heparin Sodium/ Dextrose 250 ml @ 10 mls/hr Q24H IV 04/25/24 11:00 04/25/24 23:59 Examination: CVS:Normal (Telemetry reviewed and consistent with sinus rhythm at 82 beats per minute, no overnight events/arrhythmias noted) laboratory and microbiology Laboratory Tests 04/25/24 05:13 Test 04/25/24 05:13 Range/Units Serum Glucose 98 74-106 mg/dL Problem List/Assessment/Plan Problem List/Assessment/Plan Assessment NSTEMI likely type 2 Influenza A positive Suspected myocarditis Paroxysmal atrial fibrillation with episode of RVR Amphetamine abuse Medication noncompliance Plan/Recommendation * Continue heparin drip. Follow-up echo reviewed, shows normal EF no significant valvular structural abnormalities. Continue aspirin and statin. Troponin downtrending. Recommend cardiac catheterization +/- PCI. All risks, benefits, and alternatives of cardiac catheterization explained to the patient including the risk of stroke, [place], , coronary perforation, pericardial tamponade, contrast induced nephropathy, need for emergent CABG, mechanical support, mechanical ventilation, and bleeding from vascular complications from the procedure. Patient is agreeable to proceed with procedure. NPO after midnight * On Tamiflu * Metoprolol 25 mg p.o. twice daily. On heparin drip for stroke prophylaxis, recommend Eliquis 5 mg p.o. twice daily upon discharge. * Colchicine 0.6 mg p.o. daily. * Strongly advised against continued amphetamine use. Case Discussed with Dr Correia. Continue heparin drip for NSTEMI. Troponin downtrending. Denies any overnight cardiac symptoms of chest pain, palpitation, shortness of breath. Metoprolol changed at 25 mg p.o. twice daily. Normal EF on echo. Continued on colchicine 0.6 mg p.o. daily. Plan for coronary angiogram in a.m.. NPO after midnight. Plan of care discussed with patient and is agreeable all questions answered. Continue telemetry monitoring. Critical care, time spent: 40 minutes This medical document was created using an electronic medical record system with voice recognition software and computerized dictation system. Although this document has been carefully reviewed, there might still be some phonetic and typographical errors. Occasional wrong-word or ``sound-alike substitutions may have occurred due to the inherent limitations of voice recognition software. These areas are purely typographical due to imperfections of the software programs and do not reflect any compromise in the patient's medical care. Please read the chart carefully and recognize, using context, where these substitutions have occurred. Plan discussed with: Patient Date of Service: Apr 25, 2024 Billing Provider: NATALIA CID Common Visit Codes: [id number] INP/OBS CARE(HIGH), [id number] CARE 30-74 MIN NATALIA CID Apr 25, 2024 13:02
--- NOTE | 2024-04-25 14:35 | DVHPN2 ---
Assessment/Plan Assessment/Plan Progress note Subjective 49 F admitted for chest pain, found significant trop elevation, in sinus rhythm and postive flu A. seen by me today during rounds Improving but continues to have pain Objective Physical exam alert oriented x3 laying flat, breathing comfortably on room air s1 s2 RRR no murmur abdomen soft nontender no LE edema Lab wbc 11 hb 10 mcv 71 trop 1790 - 8226 ca 84 bnp 91 EKG LVH, sinus tach Imaging CXR clear CTH clear POCUS chest: trace effusion, good contractility, grossly normal valves, IVC normal Assessment and plan treat as ACS, NSTEMI possible myocarditis acute metabolic encephalopathy Flu A URI pafib amphetamine use start asa load, heparin drip resume home meds tamiflu echo colchicine cardio consult appreciated for cath tomorrow Replete electrolytes Diet HH DVT prophylaxis on heparin drip Plan discussed with: Patient Date of Service: Apr 25, 2024 Billing Provider: APARNA SHOEMAKER MD Common Visit Codes: [id number] INP/OBS CARE(HIGH) APARNA SHOEMAKER MD Apr 25, 2024 14:35
[2024-04-25 18:11] LABS: INR 1.08 (0.9-1.15); Partial Thromboplastin Time 68.1 SEC (24.5-34.5); Prothrombin Time 11.4 sec (9.3-11.8)
[2024-04-26] VITALS (15 sets, daily range): BP systolic 109–150; BP diastolic 54–82; PULSE 18–91; RESP 13–91; TEMP 97.6–98.5; O2SAT 91–100
[2024-04-26 07:37] LABS: Basophils # (auto) 0 10 ^3/uL (0-0.2); Basophils % (auto) 0.3 % (0.0-2.0); Eosinophils # (auto) 0 10 ^3/uL (0-0.8); Eosinophils % (auto) 0.7 % (0.0-7.0); Hematocrit 32.1 % (36.0-46.0); Lymphocytes # (auto) 1.3 10 ^3/uL (0.4-5.4); Lymphocytes % (auto) 17.3 % (10.0-50.0); Mean Corpuscular Hemoglobin 22.1 pg (28.0-32.0); Mean Corpuscular Hgb Conc. 31.2 g/dL (32.0-36.0); Mean Corpuscular Volume 70.7 fL (80.0-100.0); Monocytes # (auto) 0.6 10 ^3/uL (0-1.3); Neutrophils # (auto) 5.5 10 ^3/uL (1.6-8.6); Neutrophils % (auto) 73.7 % (37.0-80.0); Platelet Count (auto) 309 10^3/uL (140-450); Red Blood Cells 4.54 10^6/uL (4.0-5.20); Red Cell Distribution Width 18.8 % (11.8-14.3); White Blood Cell 7.5 10^3/uL (4.4-10.8)
--- NOTE | 2024-04-26 11:12 | DVHPN2 ---
Subjective The patient is seen and examined at bedside. Patient is still had chest pain. Waiting for cardiac catheterization today. Reviewed: Care Plan, H&P, Labs, Medications, Previous Orders, Radiology Changes from previous H/P or p: No Changes Eyes: No Pain, No Vision change, No Conjunctivae inflammation, No Eyelid inflammation, No Other, No Redness ENT: No Ear pain, No Ear discharge, No Nose pain, No Nose discharge, No Nose congestion, No Mouth pain, No Mouth swelling, No Throat pain, No Throat swelling, No Other Cardiovascular: Chest Pain, Palpitations; No Orthopnea, No Paroxysmal Noc. Dyspnea, No Edema, No Lt Headedness, No Other Respiratory: No Cough, No Dry, No Shortness of breath, No SOB with excertion, No Wheezing, No Hemoptysis, No Pleuritic Pain, No Sputum, No Other Gastrointestinal: No Nausea, No Vomiting, No Abdominal Pain, No Diarrhea, No Constipation, No Melena, No Hematochezia, No Other Genitourinary: No Dysuria, No Frequency, No Incontinence, No Hematuria, No Retention, No Other Musculoskeletal: No other, No neck pain, No shoulder pain, No arm pain, No back pain, No hand pain, No leg pain, No foot pain Skin: No Rash, No Lesions, No Jaundice, No Bruising, No Other Objective Vitals Vital Signs Date Time Temp Pulse Resp B/P (MAP) Pulse Ox O2 Delivery O2 Flow Rate FiO2 04/26/24 09:07 85 145/79 04/26/24 09:00 98.5 16 96 98.5 04/26/24 08:00 Room Air* 0 21 Intake/Output Intake and Output 04/26/24 07:00 Intake Total 2400 ml Balance 2400 ml Intake Oral 1100 ml IV Total 1200 ml Tube Feeding 100 ml # Bowel Movements 1 General Appearance: Alert, Oriented X3, Cooperative, No acute distress HEENT: Atraumatic, PERRLA, EOMI, Mucous membr. moist/pink Neck: Supple Lungs: Clear to auscultation, Normal air movement Cardiovascular: Regular rate, Normal S1, Normal S2, No murmurs, Gallops, Rubs Abdomen: Normal bowel sounds, Soft, No tenderness, No hepatospenomegaly Neuro: Cranial nerves 3-12 NL Psych/Mental Status: Mental status NL Medications Current Medications Medications Dose Ordered Sig/Ingrid Route Start Time Stop Time Status Last Admin Dose Admin Atorvastatin Calcium 20 mg HS PO 04/24/24 22:00 04/25/24 21:50 20 MG Sodium Chloride 1,000 ml @ 60 mls/hr [id number] IV 04/24/24 00:45 04/26/24 06:51 60 MLS/HR Acetaminophen 650 mg Q6HP PRN PO 04/24/24 00:45 04/25/24 14:59 650 MG Nitroglycerin 0.4 mg Q5MINP PRN SL 04/24/24 00:45 Ceftriaxone Sodium 50 ml @ 100 mls/hr DAILY@09 IV 04/24/24 09:00 04/26/24 09:06 100 MLS/HR Oseltamivir Phosphate 75 mg Q12HR PO 04/24/24 22:00 04/29/24 21:59 04/26/24 09:06 75 MG Aspirin 81 mg DAILY PO 04/25/24 10:00 04/26/24 09:08 81 MG Colchicine 0.6 mg DAILY PO 04/24/24 11:45 04/26/24 09:06 0.6 MG Albuterol 2.5 mg Q6HPRN PRN NEB 04/24/24 12:15 04/25/24 16:04 2.5 MG Metoprolol Succinate 25 mg DAILY PO 04/25/24 10:00 04/26/24 09:07 25 MG Laboratory Results Laboratory Tests 04/25/24 05:13 04/26/24 07:00 Coagulation Test 04/25/24 17:39 Prothrombin Time 11.4 sec (9.3-11.8) Prothrombin Time INR 1.08 (0.9-1.15) Activated Partial Thromboplast Time 68.1 SEC (24.5-34.5) H Urinalysis Test 04/24/24 02:00 Urine Color Colorless (Yellow) Urine Clarity Turbid (Clear) H Urine pH 6.0 (5.0-9.0) Urine Specific [place] 1.009 (1.001-1.035) Urine Protein Trace (Negative) H Urine Ketones Negative (Negative) Urine Blood Negative /uL (Negative) Urine Nitrite Negative (Negative) Urine Bilirubin Negative (Negative) Urine Urobilinogen Normal mg/dL (Negative) Urine Leukocyte Esterase Negative /uL (Negative) Urine RBC 1 /hpf (0 - 4) Urine WBC 3 /hpf (0 - 5) Urine Squamous Epithelial Cells Few /hpf (<5) Urine Bacteria Few /hpf (None Seen) H Urine Mucus Few (None Seen) Urine Glucose Normal mg/dL (Normal) Labs and/or images reviewed: Labs reviewed by me Assessment/Plan Assessment/Plan Chest pain syndrome Non ST-elevation [place] type 2 Possible myocarditis Acute metabolic encephalopathy Influenza a with upper respiratory infection Paroxysmal atrial fibrillation Methamphetamine use Plan: Continuing current management. Waiting for cardiac catheterization. Continuing to replace electrolytes. Continuing with colchicine, NSAID. Continuing with heparin drip. Continuing with Tamiflu. We will follow up with echo. Advised to stop using methamphetamine Plan discussed with: Patient Date of Service: Apr 26, 2024 Billing Provider: BRII SHORT MD Common Visit Codes: [id number] INP/OBS CARE(HIGH) BRII SHORT MD Apr 26, 2024 11:12
[2024-04-26] MEDS: IODIXANOL 320MG/ML 100ML BTL IV ONE (14:16)
--- NOTE | 2024-04-26 14:42 | MEDREC ---
[facility] Intervention Section I [facility] Intervention: Review courses of therapy (PLEASE CONSIDER D/C ANTIBIOTIC IN ABSENCE OF BACTERIAL INFECTION ) SIRIA TEAGUE PHARMACIST Apr 26, 2024 14:42
--- NOTE | 2024-04-26 15:06 | DVHPN2 ---
Progress Note Date Seen: Apr 26, 2024 Medical Necessity Reason Pt with a Central, PICC or Fol: No Subjective Patient reports: Feels better Objective vital signs Vital Sign Date Time Temp Pulse Resp B/P (MAP) Pulse Ox O2 Delivery O2 Flow Rate FiO2 04/26/24 10:00 95 Room Air* 0 21 04/26/24 09:07 85 145/79 04/26/24 09:00 98.5 16 98.5 Total Intake and Output 04/25/24 04/25/24 04/26/24 15:00 23:00 07:00 Intake Total 50 ml 1620 ml 730 ml Balance 50 ml 1620 ml 730 ml medications Current Medications Medications Dose Ordered Sig/Ingrid Route Start Time Stop Time Status Last Admin Dose Admin Atorvastatin Calcium 20 mg HS PO 04/24/24 22:00 04/25/24 21:50 20 MG Sodium Chloride 1,000 ml @ 60 mls/hr [id number] IV 04/24/24 00:45 04/26/24 06:51 60 MLS/HR Acetaminophen 650 mg Q6HP PRN PO 04/24/24 00:45 04/25/24 14:59 650 MG Nitroglycerin 0.4 mg Q5MINP PRN SL 04/24/24 00:45 Ceftriaxone Sodium 50 ml @ 100 mls/hr DAILY@09 IV 04/24/24 09:00 04/26/24 09:06 100 MLS/HR Oseltamivir Phosphate 75 mg Q12HR PO 04/24/24 22:00 04/29/24 21:59 04/26/24 09:06 75 MG Aspirin 81 mg DAILY PO 04/25/24 10:00 04/26/24 09:08 81 MG Colchicine 0.6 mg DAILY PO 04/24/24 11:45 04/26/24 09:06 0.6 MG Albuterol 2.5 mg Q6HPRN PRN NEB 04/24/24 12:15 04/25/24 16:04 2.5 MG Metoprolol Succinate 25 mg DAILY PO 04/25/24 10:00 04/26/24 09:07 25 MG Examination: GENERAL:Abnormal, HEENT:Abnormal, LUNGS:Abnormal, CVS:Abnormal, ABDOMEN:Abnormal laboratory and microbiology Laboratory Tests 04/26/24 07:00 04/25/24 05:13 Test 04/25/24 05:13 Range/Units Serum Glucose 98 74-106 mg/dL Problem List/Assessment/Plan Problem List/Assessment/Plan nstemi flu A myocarditis meth abuse non compliance [facility] shows no severe cad cont meds asa daily colchicine needs insurance, sw consult if possible otherwise pt will need for find follow up signing off Plan discussed with: Patient My Orders My Orders Orders - BARBARA GOMEZ MD Procedure Category Date Status Time Cl Left Heart Cath CL 04/26/24 Taken 08:42 Date of Service: Apr 26, 2024 Billing Provider: BARBARA GOMEZ MD Common Visit Codes: NOT BILLABLE BARBARA GOMEZ MD Apr 26, 2024 15:06
--- NOTE | 2024-04-26 15:07 | DVHOP2 ---
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 PREOPERATIVE DIAGNOSES: nstemi/ POSTOP DIAGNOSIS: myocarditis DESCRIPTION OF PROCEDURE: The patient or appropriate family signed informed consent understanding the risks, benefits and alternatives of the procedure, they wished to proceed. 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 The patient was prepped in a sterile fashion. Sedation was used per cardiac cath protocol. I administered 2 mL of 2% lidocaine to the right wrist. With an antegrade front wall puncture. I cannulated the right radial artery and placed a 6-[place] Glidesheath slender. Next, an intra-arterial spasmolytic was administered. Next, a - 5 [place] Gran[place] catheter and were used for coronary angiogram and LVEDP measurement and pressure pullback. At the completion of procedure, all guides and wires were removed, and there were no immediate complications. 4000 U of iv heparin given. FINDINGS: RCA: Moderate large vessel off the right sinus of Valsalva, there is no severe flow limiting stenosis. LEFT MAIN: Moderate size left main, it bifurcates into LAD and circumflex. no stenosis CIRCUMFLEX: Moderate caliber vessel coming off the left main with no flow limiting stenosis. LAD: LAD is a moderate caliber vessel coming of the left main. no stenosis LVEDP of 19 mmhg CONCLUSIONS: 1. no severe epicardial cad 2. elevated lvedp PLAN: Aggressive risk factor modification and medical management for the patient. BARBARA GOMEZ MD Apr 26, 2024 15:07
[2024-04-26] MEDS: ANGIOMAX 250 MG VIAL IV ONE (15:16)
[2024-04-26] MEDS: LIDOCAINE 2%HCL (LOCAL ANESTH.) INJ 20ML MDV ONE (15:16)
[2024-04-26] MEDS: SODIUM CHL 0.9% 0 ML ONE (15:16)
[2024-04-26] MEDS: MIDAZOLAM HCL 2MG/2ML 2ml VIAL (1mg/ml) ONE (15:16)
[2024-04-26] MEDS: fentaNYL CITRATE 100 MCG/2 ML VL ONE (15:16)
[2024-04-26] MEDS: HEPARIN SODIUM (PORCINE) 5000 UNITS/ML 1ML VIAL ONE (15:17)
[2024-04-26] MEDS: VERAPAMIL 2.5MG/ML INJ 2ML VIAL IV ONE (15:17)
[2024-04-27] VITALS (10 sets, daily range): BP systolic 130–149; BP diastolic 72–86; PULSE 67–88; RESP 16–18; TEMP 97.2–98.4; O2SAT 91–99
[2024-04-27 06:40] LABS: Alanine Aminotransferase 27 U/L (7-40); Albumin 3.6 g/dL (3.2-4.8); Alkaline Phosphatase 107 U/L (46-116); Anion Gap 8 (5-15); Aspartate Aminotransferase 29 U/L (13-40); Blood Urea Nitrogen 12 mg/dL (9-23); Calcium 8.8 mg/dL (8.7-10.4); Carbon Dioxide 27 mmol/L (20-31); Chloride 105 mmol/L (98-107); Glucose 83 mg/dL (74-106); Sodium 140 mmol/L (136-145)
[2024-04-27 06:41] LABS: Total Protein 6.5 g/dL (5.7-8.2)
[2024-04-27 06:46] LABS: Bilirubin, Total 0.3 mg/dL (0.2-1.0); Potassium 3.4 mmol/L (3.5-5.1)
[2024-04-27] MEDS ORDERED: TAMIFLU PO (10:47)
[2024-04-27] MEDS ORDERED: ASPI-543 PO (10:47)
[2024-04-27] MEDS ORDERED: ATOR20TA50 PO (10:47)
[2024-04-27] MEDS ORDERED: COLC1CAP PO (10:47)
[2024-04-27] MEDS ORDERED: METO25TA36 PO (10:47)
--- NOTE | 2024-04-27 10:48 | DVHDS2 ---
Discharge Summary Date of Admission Apr 24, 2024 at 00:45 Date of Discharge: Apr 27, 2024 Admitting Diagnosis Chest pain syndrome Non ST-elevation ME type 2 Possible myocarditis Acute metabolic encephalopathy Influenza a with upper respiratory infection Paroxysmal atrial fibrillation Methamphetamine use SLE Labs/Diagnostic Data: Laboratory Results Test 04/27/24 05:31 04/26/24 07:00 04/25/24 17:39 04/25/24 05:13 Sodium Level 140 mmol/L (136-145) Potassium Level 3.4 mmol/L (3.5-5.1) Chloride Level 105 mmol/L (98-107) Carbon Dioxide Level 27 mmol/L (20-31) Anion Gap 8 (5-15) Blood Urea Nitrogen 12 mg/dL (9-23) Creatinine 0.50 mg/dL (0.550-1.02) Glomerular Filtration Rate Calc 116 mL/min (>90) BUN/Creatinine Ratio 24.0 (10.0-20.0) Serum Glucose 83 mg/dL (74-106) Calcium Level 8.8 mg/dL (8.7-10.4) Total Bilirubin 0.3 mg/dL (0.2-1.0) Aspartate Amino Transferase (AST) 29 U/L (13-40) Alanine Aminotransferase (ALT) 27 U/L (7-40) Alkaline Phosphatase 107 U/L (46-116) Total Protein 6.5 g/dL (5.7-8.2) Albumin 3.6 g/dL (3.2-4.8) White Blood Count 7.5 10^3/uL (4.4-10.8) Red Blood Count 4.54 10^6/uL (4.0-5.20) Hemoglobin 10.0 g/dL (12.2-16.2) Hematocrit 32.1 % (36.0-46.0) Mean Corpuscular Volume 70.7 fL (80.0-100.0) Mean Corpuscular Hemoglobin 22.1 pg (28.0-32.0) Mean Corpuscular Hemoglobin Concent 31.2 g/dL (32.0-36.0) Red Cell Distribution Width 18.8 % (11.8-14.3) Platelet Count 309 10^3/uL (140-450) Mean Platelet Volume 8.1 fL (6.9-10.8) Neutrophils (%) (Auto) 73.7 % (37.0-80.0) Lymphocytes (%) (Auto) 17.3 % (10.0-50.0) Monocytes (%) (Auto) 8.0 % (0.0-12.0) Eosinophils (%) (Auto) 0.7 % (0.0-7.0) Basophils (%) (Auto) 0.3 % (0.0-2.0) Neutrophils # (Auto) 5.5 10 ^3/uL (1.6-8.6) Lymphocytes # (Auto) 1.3 10 ^3/uL (0.4-5.4) Monocytes # (Auto) 0.6 10 ^3/uL (0-1.3) Eosinophils # (Auto) 0 10 ^3/uL (0-0.8) Basophils # (Auto) 0 10 ^3/uL (0-0.2) Nucleated Red Blood Cells 0.0 % Prothrombin Time 11.4 sec (9.3-11.8) Prothrombin Time INR 1.08 (0.9-1.15) Activated Partial Thromboplast Time 68.1 SEC (24.5-34.5) Phosphorus Level 3.0 mg/dL (2.4-5.1) Magnesium Level 1.8 mg/dL (1.6-2.6) Troponin I High Sensitivity 1823 ng/L (</=34) Test 04/24/24 11:55 04/24/24 05:40 04/24/24 02:35 04/24/24 02:00 Lactic Acid Level 1.1 mmol/L (0.4-2.0) Erythrocyte Sedimentation Rate 23 mm/hr (0-20) Influenza Type A Antigen Positive (Negative) Influenza Type B Antigen Negative (Negative) SARS-CoV-2 Antigen (Rapid) Negative (NEGATIVE) Urine Color Colorless (Yellow) Urine Clarity Turbid (Clear) Urine pH 6.0 (5.0-9.0) Urine Specific [place] 1.009 (1.001-1.035) Urine Protein Trace (Negative) Urine Ketones Negative (Negative) Urine Blood Negative /uL (Negative) Urine Nitrite Negative (Negative) Urine Bilirubin Negative (Negative) Urine Urobilinogen Normal mg/dL (Negative) Urine Leukocyte Esterase Negative /uL (Negative) Urine RBC 1 /hpf (0 - 4) Urine WBC 3 /hpf (0 - 5) Urine Squamous Epithelial Cells Few /hpf (<5) Urine Bacteria Few /hpf (None Seen) Urine Mucus Few (None Seen) Urine Glucose Normal mg/dL (Normal) Urine Opiates Screen Neg (NEGATIVE) Urine Fentanyl Screen Neg (NEGATIVE) Urine Barbiturates Screen Neg (NEGATIVE) Urine Phencyclidine Screen Neg (NEGATIVE) Urine Amphetamines Screen Pos (NEGATIVE) Urine Benzodiazepines Screen Neg (NEGATIVE) Urine Cocaine Screen Neg (NEGATIVE) Urine Cannabinoids Screen Neg (NEGATIVE) Test 04/23/24 22:16 B-Type Natriuretic Peptide 91.39 pg/mL (0-100) Beta HCG, Quantitative 1.4 mIU/mL (1.5-4.2) Other Laboratory Tests 04/27/24 05:31 04/26/24 07:00 Brief Hx & Hospital Course: This is a 49 years old female with past medical history atrial fibrillation, CVA came to [facility] with chief complaint of chest pain. 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 Patient only responds to deep stimulation when EMS get to her. Patient had atrial fib with RVR. The patient was given IV fluid, aspirin, heart rate improved. The patient was found to have troponin level 3250. WBC of 11.1. Heart rate trending down. CT head is negative for acute process. She does have a temperature of 100. Influenza a is positive. Patient was started on Tamiflu, ceftriaxone, metoprolol and heparin drip. Manager Branch see the patient and recommend cardiac catheterization. Cardiac catheterization showed no vessel obstructive. We suspect the patient had myocarditis. Colchicine was started. Her pain improved. No more fever. Culture negative. Today her heart rate is controlled . Chest pain is improved with colchicine. I am going to discharge her home. Advised her to follow up with primary care physician 1-2 weeks. Activity as tolerated. Diet per home diet. Physical exam: HEENT: Normocephalic atraumatic pupils equal react to light and accommodation. Extraocular muscles intact, conjunctiva pink, oropharynx moist, no thrush, no exudate. Lymphatic: No lymphadenopathy Cardiovascular exam: S1, S2 was heard. No murmurs, rubs, gallops Lung: Clear on auscultation bilaterally, no wheeze, rale, rhonchi. GI: Abdominal soft, nondistended, nontenderness, positive bowel sounds. Extremity: No crepitus, cyanosis, edema. Pedal pulses present bilateral. Full range of motion. Skin: Normal turgor, no rash. Psych: Alert, oriented x3. Neurology: No focal deficits, cranial nerve II to XII grossly intact. This medical document was created using an electronic medical record system with [employer] direct computerized dictation system. Although this document has been carefully reviewed, there may still be some phonetic and typographical errors. These areas are purely typographical due to imperfections of the software programs, and do not reflect any compromise in the patient's medical care. Condition at Discharge: Stable Final Diagnosis/Problems List Chest pain syndrome Non ST-elevation ME type 2 Possible myocarditis Acute metabolic encephalopathy Influenza a with upper respiratory infection Paroxysmal atrial fibrillation Methamphetamine use SLE Discharge Disposition: Home Discharge Instruct/Medications Diet: Cardiac 2g Na,low cholest Activity: No Restrictions, As Tolerated Follow Up/Referral: pcp 1-2 weeks Manager Branch per schedule Medications: See med list Discharge Statement: "Patient was advised to return to the ER or call 911 if any headaches, dizziness, shortness of breath, chest pain, abdominal pain, bleeding, fevers, or worsening of medical condition. Patient was counseled about treatment plan, medications, possible side effects, patientverbalized understanding. All questions were answered to the best of my ability. This discharge took greater then 30 minutes in planning, reviewing documentation, counseling the patient, and discussing with other team members." ASSESSMENT ASSESSMENT Assessment chest pain Date of Service: Apr 27, 2024 Billing Provider: BRII SHORT MD Common Visit Codes: 11858-VRL/OBS DISCH DAY >30min BRII SHORT MD Apr 27, 2024 10:48
[2024-04-27] MEDS: POTASSIUM CHL 20 Meq TABLET PO ONE (16:25)
== END 2024-04-27 16:35 | disposition home or self-care (01) | DRG 192 ==
LOC: EDBD 21:57 → ER 22:02 → TELE 04-24 00:45 → TELE-CENTR 04-24 00:52 → TELE-EAST 04-26 20:24
PROVIDERS: ADMIT Nurse Practitioner Family; ATTEND Internal Medicine
PROC: 4A023N7 Measurement of Cardiac Sampling and Pressure, Left Heart, Percutaneous Approach (ICD-10-PCS; principal; 2024-04-26)
PROC: B211YZZ Fluoroscopy of Multiple Coronary Arteries using Other Contrast (ICD-10-PCS; 2024-04-26)
DX: I51.4 Myocarditis, unspecified (principal); G93.41 Metabolic encephalopathy; I21.A1 Myocardial infarction type 2; J10.1 Influenza due to other identified influenza virus with other respiratory manifestations; I48.0 Paroxysmal atrial fibrillation; F15.10 Other stimulant abuse, uncomplicated; Z20.822 Contact with and (suspected) exposure to COVID-19; Z86.73 Personal history of transient ischemic attack (TIA), and cerebral infarction without residual deficits; Z83.3 Family history of diabetes mellitus; Z91.148 Patient's other noncompliance with medication regimen for other reason; Z91.199 Patient's noncompliance with other medical treatment and regimen due to unspecified reason; Z79.899 Other long term (current) drug therapy; M32.9 Systemic lupus erythematosus, unspecified
CPT/HCPCS: 36415; 70450; 71045; 80053; 80307; 81001; 83605; 83735; 83880; 84100; 84484; 84702; 85025; 85610; 85652; 85730; 86850; 86900; 86901; 87426; 87804; 93005; 93306; 93458; 94640; 99152; 99291; G0378; J2250; J2543; Q9967

== ENCOUNTER 2025-01-02 12:24 | Emergency (ER) | payer MEDICAID, OTHER ==
[~2025-01-02] VITALS: Ht 144.8 cm; Wt 80.2 kg
[~2025-01-02 12:24] MED LIST: ASPI-543 PO; ATOR20TA50 PO; COLC1CAP PO; METO25TA36 PO; TAMIFLU PO
[2025-01-02 12:27] VITALS: BP 134/85; RESP 15; TEMP 97.7; O2SAT 99
[2025-01-02 12:29] VITALS: PULSE 80
--- NOTE | 2025-01-02 12:36 | ED.PDOC ---
HPI Comments 49-year-old female presents here with chest discomfort. She states she was working yesterday at [employer] when she had tightness in her chest with radiation to her left arm. Positive nausea. She states she felt dizzy and thought she was going to pass out. She states she sat down and I discomfort lasted about 5 minutes and then self-resolved. She states it is she has a history of previous myocardial infarction. She has had angiography done. But no stents as far she knows. Currently she is chest pain free. States she has not been sick. No recent cough cold runny nose fever or chills. Chief Complaint: Chest Wall Injury Time Seen by MD: 12:35 Primary Care Provider: N/A Reviewed Notes: Nurses Notes, Medications, Allergies Allergies: Coded Allergies: NO KNOWN ALLERGIES (Unverified , 02/21/17) Home Meds Active Scripts Oseltamivir Phosphate (Tamiflu) 75 Mg Cap, 75 MG PO Q12HR, #10 CAP Prov:RBII SHORT MD 04/27/24 Metoprolol Succinate (Toprol Xl) 25 Mg Tab, 1 TAB PO DAILY, #30 TAB 5 Refills Prov:BRII SHORT MD 04/27/24 Colchicine (Colchicine) 0.6 Mg Cap, 0.6 MG PO DAILY, #30 CAP Prov:BRII SHORT MD 04/27/24 Aspirin (Aspir-Low) 81 Mg Tab, 81 MG PO DAILY, #30 TAB Prov:BRII SHORT MD 04/27/24 Atorvastatin Calcium (ATORVASTATIN CALCIUM) 20 Mg Tab, 20 MG PO HS, #30 TAB Prov:BRII SHORT MD 04/27/24 Information Source: Patient Mode of Arrival: Ambulatory Severity: Moderate Timing: Hours Duration: Since onset Prehospital treatment: None Location: Substernal Radiation: Arm (L) Quality: Tightness Onset: At Rest Cardiac Risk Factors: Hyperlipidemia, HTN PE Risk Factors: None History of: None Modifying Factors: Nothing Associated Signs and Symptoms: None Past Medical History PAST MEDICAL HISTORY: AFIB, CAD, CVA, High Lipids, HTN Surgical History: Denies all surgeries ASSOCIATE PROGRAMMER ANALYST History: Denies all 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 PROGRAMMER ANALYST Hx Family History Family History: Unknown Social History Smoker: Non-Smoker, Pt Confused Alcohol: Denies ETOH Use, Pt Confused Drugs: Denies Drug Use, Pt Confused Lives In: Home Constitutional: denies: chills, diaphoresis, fatigue, fever, malaise, sweats, weakness, others EENTM: denies: blurred vision, double vision, ear bleeding, ear discharge, ear drainage, ear pain, ear ringing, eye pain, eye redness, hearing loss, mouth pain, mouth swelling, nasal discharge, nose bleeding, nose congestion, nose pain, photophobia, tearing, throat pain, throat swelling, voice changes, others Respiratory: denies: cough, hemoptysis, orthopnea, SOB at rest, shortness of breath, SOB with excertion, stridor, wheezing, others Cardiovascular: reports: chest pain; denies: dizzy spells, diaphoresis, Dyspnea on exertion, edema, irregular heart beat, left arm pain, lightheadedness, palpitations, PND, syncope, others Gastrointestinal: denies: abdomen distended, abdominal pain, blood streaked bowels, constipated, diarrhea, dysphagia, difficulty swallowing, hematemesis, melena, nausea, poor appetite, poor fluid intake, rectal bleeding, rectal pain, vomiting, others Genitourinary: denies: abnormal vagina bleeding, burning, dyspareunia, dysuria, flank pain, frequency, hematuria, incontinence, pain, , vagina discha rge, urgency, others Neurological: denies: dizziness, fainting, headache, left sided numbness, left sided weakness, numbness, paresthesia, pre-existing deficit, right sided numbness, right sided weakness, seizure, speech problems, tingling, tremors, weakness, others Musculoskeletal: denies: back pain, gout, joint pain, joint swelling, muscle pain, muscle stiffness, neck pain, others Integumetry: denies: bruises, change in color, change in hair/nails, dryness, laceration, lesions, lumps, rash, wounds, others Allergic/Immunocompromised: denies: Difficulty Healing, Frequent Infections, Hives, Itching, others Hematologic/Lymphatic: denies: anemia, blood clots, easy bleeding, easy bruising, swollen glands, others Endocrine: denies: excessive hunger, excessive sweating, excessive thirst, excessive urination, flushing, intolerance to cold, intolerance to heat, unexplained weight gain, unexplained weight loss, others Psychiatric: denies: anxiety, bipolar disorder, depression, hopeless, panic disorder, schizophrenia, sleepless, suicidal, others All Other Systems: Reviewed and Negative Physical Exam General Appearance: No Apparent Distress, Normal HEENT: Normal ENT Inspection, Pharynx Normal Neck: Full Range of Motion, Non-Tender, Normal, Normal Inspection Respiratory: Chest Non-Tender, Lungs Clear, No Accessory Muscle Use, No Respiratory Distress, Normal Breath Sounds Cardiovascular: No Edema, No Murmur, No Gallop, Normal Peripheral Pulses, Regular Rate/Rhythm Breast Exam: Deferred Gastrointestinal: No Organomegaly, Non Tender, No Pulsatile Mass, Normal Bowel Sounds, Soft Genitalia: Deferred Pelvic: Deferred Rectal: Deferred Extremities: No calf tenderness, Normal capillary refill, Normal inspection, Normal range of motion, Non-tender, No pedal edema Musculoskeletal : Apperance: Normal Neurologic: Alert, claims counsel II-XII nml as Tested, No Motor Deficits, Normal Affect, Normal Mood, No Sensory Deficits Cerebellar Function: Normal Reflexes: Normal Skin: Dry, Normal Color, Warm Lymphatic: No Adenopathy EKG EKG : Comments Sinus rhythm rate of [address] changes Was a procedure done? Was a procedure done?: No CP Differential Dx Differential Diagnosis: OH Differential Diagnosis: Angina, Aortic dissection, Chest Wall Pain, Costochondritis, Esophageal reflux/spasm, Gastritis, Myocardial Infarction, Pericarditis, Pneumonia, Pneumothorax, Pulmonary Embolus X-Ray, Labs, Meds, VS Vital Signs Date Time Temp Pulse Resp B/P (MAP) Pulse Ox O2 Delivery O2 Flow Rate FiO2 01/02/25 12:29 80 01/02/25 12:27 97.7 74 15 134/85 99 97.7 Lab Test 01/02/25 12:54 Range/Units White Blood Count 9.5 4.4-10.8 10^3/uL Red Blood Count 5.02 4.0-5.20 10^6/uL Hemoglobin 11.7 L 12.2-16.2 g/dL Hematocrit 36.5 36.0-46.0 % Mean Corpuscular Volume 72.6 L 80.0-100.0 fL Mean Corpuscular Hemoglobin 23.3 L 28.0-32.0 pg Mean Corpuscular Hemoglobin Concent 32.1 32.0-36.0 g/dL Red Cell Distribution Width 19.1 H 11.8-14.3 % Platelet Count 399 140-450 10^3/uL Mean Platelet Volume 7.9 6.9-10.8 fL Neutrophils (%) (Auto) 63.8 37.0-80.0 % Lymphocytes (%) (Auto) 25.9 10.0-50.0 % Monocytes (%) (Auto) 5.7 0.0-12.0 % Eosinophils (%) (Auto) 3.8 0.0-7.0 % Basophils (%) (Auto) 0.8 0.0-2.0 % Neutrophils # (Auto) 6.1 1.6-8.6 10 ^3/uL Lymphocytes # (Auto) 2.5 0.4-5.4 10 ^3/uL Monocytes # (Auto) 0.5 0-1.3 10 ^3/uL Eosinophils # (Auto) 0.4 0-0.8 10 ^3/uL Basophils # (Auto) 0.1 0-0.2 10 ^3/uL Nucleated Red Blood Cells 0.0 % Platelet Estimate Adequate Hypochromasia (manual) Slight Anisocytosis (manual) Slight Microcytosis Slight Ovalocytes Few Sodium Level 141 136-145 mmol/L Potassium Level 4.4 3.5-5.1 mmol/L Chloride Level 105 98-107 mmol/L Carbon Dioxide Level 28 20-31 mmol/L Anion Gap 8 5-15 Blood Urea Nitrogen 12 9-23 mg/dL Creatinine 0.58 0.550-1.02 mg/dL Glomerular Filtration Rate Calc 112 >90 mL/min BUN/Creatinine Ratio 20.7 H 10.0-20.0 Serum Glucose 92 74-106 mg/dL Calcium Level 9.1 8.7-10.4 mg/dL Troponin I High Sensitivity 3 L </=34 ng/L Current Medications Medications (Trade) Dose Ordered Sig/Ingrid Route Start Time Stop Time Status Last Admin Aspirin 325 mg ONCE ONCE PO 01/02/25 12:45 01/02/25 12:46 DC 01/02/25 13:[address] [address] Ph: [phone] DIAGNOSTIC IMAGING Diagnostic Imaging Report : [id number] Signed PATIENT: PARVIZ PERDOMO ACCT: [id number] UNIT: [id number] : 1975 LOC: ER ROOM / BED: / AGE / SEX: 49 / F ADM STATUS: REG ER SERVICE [id number] ORDERING PHYSICIAN: ERNESTINE BRAVO MD PROCEDURE(s): CXR2 - CHEST TWO VIEWS ROUTINE REASON: Chest pain ORDER NUMBER(s): [id number], ACCESSION NUMBER(s): [id number] XY CHEST TWO VIEWS ROUTINE CLINICAL HISTORY: Chest pain COMPARISON: XY CHEST PORTABLE on DOS: 04/23/24 TECHNIQUE: Frontal and lateral view of the chest was obtained FINDINGS: Lines and Tubes: None Lungs: No focal consolidation. Pleura: No effusion. No pneumothorax. Cardiomediastinal contours: Unremarkable Bones: No acute osseous abnormality. IMPRESSION: No acute cardiopulmonary disease. ATED BY: MAKAYLA LEE DO DICTATED DATE/TIME: 01/02/25 1304 SIGNED BY: MAKAYLA LEE DO SIGNED DATE/TIME: 01/02/25 1304 CC: 49-year-old female presents here with chest tightness that occurred yesterday while she was working. Concern for angina. She states symptoms improved once she rested. She does have a history of previous myocardial infarction and does have risk factors. At this time I have ordered a CBC BMP troponin. EKG with LVH pattern. No STEMI at this time. Also I have ordered aspirin. CBC unremarkable BMP unremarkable 1st set troponin negative. At this time she has been given aspirin. She has a heart score of 4. At this time I have benefit from inpatient admission. Hospitalist team has been contacted. Time of 1ST Reevaluation: 13:05 Reevaluation 1ST: Unchanged Patient Education/Counseling: Diagnosis, Treatment Family Education/Counseling: No Family Present SEPSIS Sepsis Screen Date sepsis recognized/suspect: Jan 02, 2025 Time Sepsis recognized/suspect: 1229 Recent Procedure: No On Antibiotic Therapy: No Respiratory Rate >20: No Heart Rate >90: No Temp<36 C (96.8 F) or >38.3 C: No SBP <90 or MAP <65 mmHG: No New Acute Mental Status Change: No Is the patient on CPAP, BIPAP,: No Physician Orders Electrocardigram (01/02/25 12:30) Chest Two Views Routine (01/02/25 12:38) Troponin-I Hs (8/24/25 13:38) Vital Signs Date Time Temp Pulse Resp B/P (MAP) Pulse Ox O2 Delivery O2 Flow Rate FiO2 01/02/25 12:29 80 01/02/25 12:27 97.7 74 15 134/85 99 97.7 Laboratory Tests Test 01/02/25 12:54 White Blood Count 9.5 10^3/uL (4.4-10.8) Medications Medications Dose Ordered Sig/Ingrid Route Start Time Stop Time Status Last Admin Dose Admin Aspirin 325 mg ONCE ONCE PO 01/02/25 12:45 01/02/25 12:46 DC 01/02/25 13:09 Departure 1 Departure Time of Disposition: 15:05 Impression: Primary Impression: Chest pain Qualified Codes: R07.9 - Chest pain, unspecified Disposition: ADMITTED INPATIENT Condition: Fair Critical Care Note Critical Care Time?: No Stability Stability form required: No Heart Score Heart Score: Heart Score Response (Comments) Value History Moderate Suspicious 1 EKG Repolarization Disturb 1 Age 45-64 1 Risk Factors 1 or 2 risk factors 1 Troponin Normal limit 0 Total 4 I personally scribed for ERNESTINE BRAVO MD ([email or web address]) on 01/02/25 at 12:43. Electronically submitted by Lexus Jimenez ([email or web address]). I personally scribed for ERNESTINE BRAVO MD ([email or web address]) on 01/02/25 at 12:53. Electronically submitted by Lexus Jimenez ([email or web address]). I personally scribed for ERNESTINE BRAVO MD ([email or web address]) on 01/02/25 at 13:12. Electronically submitted by Lexus Jimenez ([email or web address]). I personally scribed for ERNESTINE BRAVO MD ([email or web address]) on 01/02/25 at 15:37. Electronically submitted by Lexus Jimenez ([email or web address]). ERNESTINE BRAVO MD Jan 02, 2025 12:36
--- NOTE | 2025-01-02 13:06 | DVH ---
XY CHEST TWO VIEWS ROUTINE CLINICAL HISTORY: Chest pain COMPARISON: XY CHEST PORTABLE on DOS: 04/23/24 TECHNIQUE: Frontal and lateral view of the chest was obtained FINDINGS: Lines and Tubes: None Lungs: No focal consolidation. Pleura: No effusion. No pneumothorax. Cardiomediastinal contours: Unremarkable Bones: No acute osseous abnormality. IMPRESSION: No acute cardiopulmonary disease.
[2025-01-02 13:31] LABS: Hemoglobin 11.7 g/dL (12.2-16.2)
[2025-01-02 13:32] LABS: Chloride 105 mmol/L (98-107); Potassium 4.4 mmol/L (3.5-5.1); Sodium 141 mmol/L (136-145)
[2025-01-02 13:33] LABS: Anion Gap 8 (5-15); Carbon Dioxide 28 mmol/L (20-31)
[2025-01-02 13:34] LABS: Calcium 9.1 mg/dL (8.7-10.4); Hematocrit 36.5 % (36.0-46.0); Mean Corpuscular Hemoglobin 23.3 pg (28.0-32.0); Mean Corpuscular Volume 72.6 fL (80.0-100.0); Nucleated Red Blood Cells % 0.0 %
[2025-01-02 13:38] LABS: BUN/Creatinine Ratio 20.7 (10.0-20.0); Blood Urea Nitrogen 12 mg/dL (9-23); Glucose 92 mg/dL (74-106)
[2025-01-02 14:22] LABS: Anisocytosis Slight; Ovalocytes FEW
--- NOTE | 2025-01-03 07:43 | ECG ---
[facility] Test Date: 2025-01-02 Test Time: 12:29:44 Pat Name: PARVIZ PERDOMO Department: ED Room: Gender: F [employer] Associate: JOSE : 1975 Requested By: GABBY RIBERA Order Number: [id number] Reading MD: Geovany Clifford Measurements Intervals [place] Rate: 80 P: 67 VT: 140 QRS: 63 QRSD: 86 T: 19 QT: 390 QTc: 450 Interpretive Statements Sinus rhythm Consider left ventricular hypertrophy Electronically Signed On 01-05-2025 18:40:17 PDT by Geovany Clifford Please click the below link to view image of tracing.
== END 2025-01-02 19:00 | disposition left against medical advice (07) ==
LOC: ER 12:24
DX: R07.89 Other chest pain (principal); I25.10 Atherosclerotic heart disease of native coronary artery without angina pectoris; I48.91 Unspecified atrial fibrillation; I10 Essential (primary) hypertension; Z79.899 Other long term (current) drug therapy; Z86.73 Personal history of transient ischemic attack (TIA), and cerebral infarction without residual deficits
CPT/HCPCS: 36415; 71046; 80048; 84484; 85025; 93005